=== PATIENT | female | born 1970 | race Two or more races ===

== ENCOUNTER 2016-11-29 21:34 | Emergency (ER) | payer OTHER ==
[~2016-11-29] VITALS: Ht 160 cm; Wt 121.6 kg
[~2016-11-29 21:34] MED LIST: CITA20TA19 PO; OLAN10TA3 PO; OXCA300T4 PO; QUET200T PO; TRAZ-147 PO
[2016-11-29 21:48] VITALS: BP 125/90
[2016-11-29] MEDS ORDERED: IBUPROFEN 400 MG TABLET PO ONE (22:30)
[2016-11-29] MEDS ORDERED: IBUPROFEN 400 MG TABLET ONE (22:45)
== END 2016-11-29 23:02 | disposition home or self-care (01) ==
LOC: ER 21:36
DX: S80.02XA Contusion of left knee, initial encounter (principal); I10 Essential (primary) hypertension; K21.9 Gastro-esophageal reflux disease without esophagitis; F32.9 Major depressive disorder, single episode, unspecified; G89.29 Other chronic pain; M54.9 Dorsalgia, unspecified; I25.2 Old myocardial infarction; F31.9 Bipolar disorder, unspecified; E11.9 Type 2 diabetes mellitus without complications; F19.10 Other psychoactive substance abuse, uncomplicated; F17.200 Nicotine dependence, unspecified, uncomplicated; Z90.710 Acquired absence of both cervix and uterus; Z88.6 Allergy status to analgesic agent; W01.198A Fall on same level from slipping, tripping and stumbling with subsequent striking against other object, initial encounter; Y93.89 Activity, other specified; Y92.89 Other specified places as the place of occurrence of the external cause; Y99.8 Other external cause status
CPT/HCPCS: 73564; 99284; A4606; Z7610

== ENCOUNTER 2016-12-22 13:33 | Emergency (ER) | payer OTHER ==
[~2016-12-22] VITALS: Ht 160 cm; Wt 122.5 kg
--- NOTE | 2016-12-22 13:56 | NUR ---
PT BIB SELF C/O LUMP ON LEFT BREAST X 2 DAYS. PT ALSO COMPLAINS OF PAIN ON LEFT BREAST. PLACED ON MONITOR. VSS.
[2016-12-22] MEDS ORDERED: IBUPROFEN 600 MG TABLET PO ONE (15:52)
[2016-12-22] MEDS ORDERED: ACETAMINOPHEN 650 MG/20.3 ML UDC ONE (15:54)
[2016-12-22] MEDS: IBUPROFEN 600 MG TABLET PO STA (15:59)
[2016-12-22] MEDS: ACETAMINOPHEN 650 MG/20.3 ML UDC PO STA (15:59)
[2016-12-22] MEDS ORDERED: HYDROCODONE/APAP 5/325MG 1 EACH TABLET PO ONE (16:00)
--- NOTE | 2016-12-22 16:52 | NUR ---
CALLED DENAE TO READ US BREAST
--- NOTE | 2016-12-22 17:29 | NUR ---
ATTEMPTED TO CALL PATIENT, TO PROVIDE ACI, NO ANSWER, MESSAGE LEFT
--- NOTE | 2016-12-22 17:29 | NUR ---
Patient eloped from facility. ER MD notified.
[2016-12-22] MEDS: CEPHALEXIN MONOHYDRATE 500 MG CAPSULE PO STA (17:45)
--- NOTE | 2016-12-22 17:45 | NUR ---
PT ELOPED PRIOR TO MEDICATION ADMINISTRATION
[2016-12-22 18:08] VITALS: BP 122/80
== END 2016-12-22 18:09 | disposition left against medical advice (07) ==
LOC: ER 13:36
DX: N64.4 Mastodynia (principal); E11.9 Type 2 diabetes mellitus without complications; I10 Essential (primary) hypertension; K21.9 Gastro-esophageal reflux disease without esophagitis; Z88.5 Allergy status to narcotic agent; Z88.6 Allergy status to analgesic agent; F17.210 Nicotine dependence, cigarettes, uncomplicated
CPT/HCPCS: 76642; 99284; A4606; Z7610

== ENCOUNTER 2017-01-09 14:54 | Emergency (ER) | payer OTHER ==
[~2017-01-09] VITALS: Ht 160 cm; Wt 99.8 kg
[2017-01-09 15:00] VITALS: BP 127/71
== END 2017-01-09 15:22 | disposition home or self-care (01) ==
LOC: ER 14:57
DX: B35.3 Tinea pedis (principal); F32.9 Major depressive disorder, single episode, unspecified; E11.9 Type 2 diabetes mellitus without complications; I25.10 Atherosclerotic heart disease of native coronary artery without angina pectoris; K21.9 Gastro-esophageal reflux disease without esophagitis; I25.2 Old myocardial infarction; F17.200 Nicotine dependence, unspecified, uncomplicated; G89.29 Other chronic pain; M54.9 Dorsalgia, unspecified; I10 Essential (primary) hypertension; Z88.5 Allergy status to narcotic agent; Z88.6 Allergy status to analgesic agent; Z90.710 Acquired absence of both cervix and uterus
CPT/HCPCS: 99283; A4606; Z7610

== ENCOUNTER 2017-04-07 21:24 | Emergency (ER) | payer OTHER ==
[~2017-04-07] VITALS: Ht 160 cm; Wt 125.6 kg
[2017-04-07 21:24] VITALS: BP 127/73
[2017-04-07] MEDS ORDERED: KETOROLAC TROMETHAMINE INJ 60 MG/2 ML VIAL IM ONE (22:00)
[2017-04-07] MEDS ORDERED: HYDROCODONE/APAP 5/325MG 1 EACH TABLET PO ONE (22:00)
[2017-04-07] MEDS ORDERED: HYDROCODONE/APAP 5/325MG 1 EACH TABLET ONE (22:03)
[2017-04-07] MEDS ORDERED: KETOROLAC TROMETHAMINE INJ 30 MG/ML VIAL ONE (22:04)
--- NOTE | 2017-04-07 22:13 | NUR ---
PT REC'D A KNEE IMMOBILIZER AND MEDICATION ORDERED.
== END 2017-04-07 22:24 | disposition home or self-care (01) ==
LOC: ER 21:26
DX: M25.562 Pain in left knee (principal); I10 Essential (primary) hypertension; K21.9 Gastro-esophageal reflux disease without esophagitis; E11.9 Type 2 diabetes mellitus without complications; F17.200 Nicotine dependence, unspecified, uncomplicated; M54.9 Dorsalgia, unspecified; G89.29 Other chronic pain; F31.9 Bipolar disorder, unspecified; M19.90 Unspecified osteoarthritis, unspecified site; I25.2 Old myocardial infarction; I25.10 Atherosclerotic heart disease of native coronary artery without angina pectoris; Z95.0 Presence of cardiac pacemaker; Z88.5 Allergy status to narcotic agent; Z90.710 Acquired absence of both cervix and uterus; Z88.6 Allergy status to analgesic agent
CPT/HCPCS: 29505; 96372; 99283; A4606; J1885; Z7610

== ENCOUNTER 2017-04-10 00:13 | Inpatient (IN) | payer OTHER ==
[~2017-04-10] VITALS: Ht 160 cm; Wt 129.3 kg
--- NOTE | 2017-04-10 02:20 | NUR ---
PT PRESENTED TO THE ER WITH A C/O BLOOD IN HER STOOL. PT IS ALSO C/O ABD PAIN. PT IS ON THE MONITOR AND CONTINUOUS PULSE OX. PT'S IS AT THE BEDSIDE.
[2017-04-10] MEDS ORDERED: IV NS 0.9% 1,000 ML BAG IV ONE (03:00)
[2017-04-10] MEDS ORDERED: PANTOPRAZOLE 80 MG in IV NS 0.9% 500 ML IV ONE (03:00)
[2017-04-10] MEDS ORDERED: PANTOPRAZOLE 80 MG in IV NS 0.9% 100 ML IV ONE (03:00)
[2017-04-10] MEDS ORDERED: PANTOPRAZOLE 40 MG VIAL ONE (03:02)
[2017-04-10] MEDS ORDERED: IV SET PRIMARY 1 EA INFUS.SET MC ONE (03:03)
[2017-04-10] MEDS ORDERED: IV NS 0.9% 1,000 ML ONE ×2 (03:03→05:41)
[2017-04-10] MEDS ORDERED: IV NS 0.9% 100 ML IV ONE (03:03)
[2017-04-10] MEDS ORDERED: IV SET PRIMARY PUMP SET 1 EA INFUS.SET MC ONE ×2 (03:03→05:41)
[2017-04-10] MEDS ORDERED: IV NS 0.9% 500 ML IV ONE (03:03)
[2017-04-10 03:11] LABS: BASOPHILS % (AUTO) 0.3 % (0.0-2.0); EOSINOPHILS # (AUTO) 0.3 /CMM (0.0-0.7); EOSINOPHILS % (AUTO) 2.8 % (0.0-6.0); HEMATOCRIT 39 % (33-45); HEMOGLOBIN 13.2 g/dL (11.5-14.8); LYMPHOCYTES # (AUTO) 2.7 /CMM (0.8-4.8); LYMPHOCYTES % (AUTO) 29.1 % (20.0-44.0); MEAN CORPUSCULAR HEMOGLOBIN 29 PG (26.0-33.0); MEAN CORPUSCULAR HGB CONC 34 g/dl (31.0-36.0); MEAN CORPUSCULAR VOLUME 86 fL (82-100); MONOCYTES # (AUTO) 0.5 /CMM (0.1-1.30); MONOCYTES % (AUTO) 5.1 % (2.0-12.0); NEUTROPHILS # (AUTO) 5.9 /CMM (1.8-8.9); NEUTROPHILS % (AUTO) 62.7 % (43.0-81.0); PLATELET COUNT (AUTO) 294 /CMM (150-450); RDW COEFFICIENT OF VARIATION 15.1 (11.5-15.0); RED BLOOD CELL COUNT(AUTO) 4.51 MIL/uL (4.0-5.2); WHITE BLOOD COUNT (AUTO) 9.4 K/uL (4.3-11.0)
[2017-04-10] MEDS ORDERED: LANS15TA4 PO (03:11)
[2017-04-10] MEDS ORDERED: FURO-145 PO (03:11)
[2017-04-10 03:18] LABS: CALCIUM, SERUM 8.6 mg/dL (8.5-10.1); CARBON DIOXIDE 31 mmol/L (21-32); CHLORIDE 104 mmol/L (98-107); CREATININE 0.7 mg/dL (0.6-1.3); GLUCOSE 134 mg/dL (74-106); POTASSIUM 3.4 mmol/L (3.5-5.1); SODIUM SERUM 140 mmol/L (136-145); UREA NITROGEN, BLOOD 4 mg/dL (7-18)
[2017-04-10 03:25] LABS: TROPONIN I < 0.017 ng/mL (0.00-0.056)
[2017-04-10 03:26] LABS: ALANINE AMINOTRANSFERASE 25 U/L (12-78); ALBUMIN 2.6 g/dL (3.4-5.0); ALKALINE PHOSPHATASE 93 U/L (46-116); ASPARTATE AMINOTRANSFERASE 19 U/L (15-37); BILIRUBIN,TOTAL 0.1 mg/dL (0.2-1.0); LIPASE 66 U/L (73-393); TOTAL PROTEIN, SERUM 6.2 g/dL (6.4-8.2)
[2017-04-10 03:32] LABS: INR 0.92 (0.87-1.13); PROTHROMBIN TIME 9.8 SECS (9.5-12.7)
[2017-04-10] MEDS ORDERED: DOCU-270 PO (03:37)
[2017-04-10] MEDS ORDERED: FERR-58 PO (03:37)
[2017-04-10] MEDS ORDERED: FLUO20CA36 PO (03:37)
[2017-04-10] MEDS ORDERED: OLAN15TA3 PO (03:37)
[2017-04-10] MEDS ORDERED: OXYB10TA PO (03:37)
[2017-04-10] MEDS ORDERED: METF500T4 PO (03:37)
[2017-04-10] MEDS ORDERED: [UNRECOGNIZED DRUG - CODE] EACHEYE (03:37)
[2017-04-10] MEDS ORDERED: ONDANSETRON HCL/PF 4 MG/2 ML VIAL ONE (03:48)
[2017-04-10] MEDS ORDERED: HYDROMORPHONE 1 MG/1 ML DISP.SYRIN ONE (03:48)
--- NOTE | 2017-04-10 03:54 | NUR ---
PT MEDICATED ORDERED
--- NOTE | 2017-04-10 04:21 | NUR ---
ASSIGNED M/S [facility] 322-1
[2017-04-10] MEDS ORDERED: HYDROMORPHONE 1 MG/1 ML DISP.SYRIN IV ONE (05:00)
[2017-04-10] MEDS ORDERED: ONDANSETRON HCL/PF 4 MG/2 ML VIAL IV ONE (05:00)
--- NOTE | 2017-04-10 05:15 | NUR ---
MS/RN NOTES PT ARRIVED TO UNIT FROM ER VIA GURNEY. ON ROOM AIR, A/OX3, BREATHING EVEN AND UNLABORED. DENIES SOB AT THIS TIME. NO S/S OF DISTRESS. IV TO RFA PATENT AND INTACT RUNNING IVF ORDERED. ORIENTED PT TO ROOM AND CALL LIGHT. BED IN LOW/LOCKED POSITION WITH CALL LIGHT IN REACH. SIDE RAILS UPX2. WILL CONTINUE TO MONITOR
[2017-04-10] MEDS ORDERED: IV NS 0.9% 1,000 ML BAG IV PRN (05:30)
[2017-04-10] MEDS ORDERED: ONDANSETRON HCL/PF 4 MG/2 ML VIAL IV PRN (05:30)
[2017-04-10] MEDS ORDERED: ACETAMINOPHEN ES 500 MG TABLET ONE (06:31)
[2017-04-10] MEDS: ACETAMINOPHEN ES 500 MG TABLET PO PRN ×2 (06:43→14:29)
--- NOTE | 2017-04-10 06:54 | NUR ---
MS/RN NOTES PT COMPLAINING OF PAIN 8/10 TO ABDOMEN. SPOKE TO DR. JEWELL AND HE WILL NOT ORDER OPIOIDS FOR HER. ORDERED TYLENOL 1,000MG (2 TABS) PRN Q6H FOR PAIN. ORDERS NOTED AND CARRIED OUT.
--- NOTE | 2017-04-10 07:00 | NUR ---
MS/RN NOTES PT ASLEEP, EASILY AROUSABLE TO NAME. A/OX3. ON ROOM AIR, NO SOB OR DISTRESS NOTED. BREATHING EVEN AND UNLABORED. DENIES PAIN AT THIS TIME. TYLENOL 1,000MG PO ADMINISTERED FOR ABDOMINAL PAIN. IV TO RAC RUNNING IVF ORDERED. BED IN LOW/LOCKED POSITION WITH CALL LIGHT IN REACH. SIDE RAILS UPX2. WILL ENDORSE TO AM SHIFT C[place].
--- NOTE | 2017-04-10 07:21 | NUR ---
ms rn initial notes Received patient in bed, asleep, head of bed elevated, no SOB or distress noted. On room air and tolerated well. IV intact and patent with IVF infusing well. Alert and oriented x 3, verbally responsive and able to make needs known. Kept patient clean and comfortable in bed, call light with in patient reach, will continue to monitor accordingly.
--- NOTE | 2017-04-10 07:30 | NUR ---
MS/RN NOTES BLOOD [id number]. NO INSULIN SLIDING SCALE, PT TAKING METFORMIN AT HOME. ON CLEAR LIQUID DIET.
[2017-04-10] MEDS: BLOOD SUGAR DIAGNOSTIC 1 EACH STRIP IN SCH ×4 (07:40→23:07)
[2017-04-10 07:47] LABS: BASOPHILS % (AUTO) 0.5 % (0.0-2.0); EOSINOPHILS # (AUTO) 0.3 /CMM (0.0-0.7); EOSINOPHILS % (AUTO) 3.3 % (0.0-6.0); HEMATOCRIT 37 % (33-45); HEMOGLOBIN 12.3 g/dL (11.5-14.8); LYMPHOCYTES # (AUTO) 3.2 /CMM (0.8-4.8); LYMPHOCYTES % (AUTO) 33.7 % (20.0-44.0); MEAN CORPUSCULAR HEMOGLOBIN 29 PG (26.0-33.0); MEAN CORPUSCULAR HGB CONC 33 g/dl (31.0-36.0); MEAN CORPUSCULAR VOLUME 87 fL (82-100); MONOCYTES # (AUTO) 0.5 /CMM (0.1-1.30); MONOCYTES % (AUTO) 5.2 % (2.0-12.0); NEUTROPHILS # (AUTO) 5.5 /CMM (1.8-8.9); NEUTROPHILS % (AUTO) 57.3 % (43.0-81.0); PLATELET COUNT (AUTO) 270 /CMM (150-450); RDW COEFFICIENT OF VARIATION 14.8 (11.5-15.0); RED BLOOD CELL COUNT(AUTO) 4.27 MIL/uL (4.0-5.2); WHITE BLOOD COUNT (AUTO) 9.6 K/uL (4.3-11.0)
[2017-04-10 07:54] LABS: CALCIUM, SERUM 8.1 mg/dL (8.5-10.1); CREATININE 0.7 mg/dL (0.6-1.3); POTASSIUM 3.4 mmol/L (3.5-5.1)
[2017-04-10 08:00] VITALS: BP 112/52
[2017-04-10] MEDS: PANTOPRAZOLE 40 MG VIAL IV SCH (09:00)
--- NOTE | 2017-04-10 09:35 | NUR ---
ms rn notes Protonix IV held due to patient is on protonix IV drip still infusing. Will continue to monitor accordingly.
[2017-04-10] MEDS ORDERED: POTASSIUM CHLORIDE 20 MEQ TAB.PRT.SR PO SCH (11:30)
[2017-04-10] MEDS: METFORMIN 500 MG TABLET PO SCH (12:15)
[2017-04-10 16:00] VITALS: BP 118/76
[2017-04-10 16:15] VITALS: BP 115/76
--- NOTE | 2017-04-10 16:21 | NUR ---
ms rn notes Dr. Rutherford came seen and examined the patient and discussed the plan of care and ordered Gabapentin 800 mg TID. All orders carried out and noted. Will continue to monitor accordingly.
[2017-04-10] MEDS: OXYBUTYNIN CHLORIDE 5 MG TABLET PO SCH (16:53)
[2017-04-10] MEDS: GABAPENTIN 400 MG CAPSULE PO SCH (16:53)
[2017-04-10] MEDS ORDERED: OLANZAPINE 5 MG TABLET PO SCH (18:00)
--- NOTE | 2017-04-10 19:17 | NUR ---
ms rn closing notes All needs provided, attended and anticipated. kept patient clean and comfortable in bed, call light with in patient reach, endorsed to next shift RN to continue care.
--- NOTE | 2017-04-10 19:20 | NUR ---
MS/RN NOTES PT RECEIVED ASLEEP IN BED, AROUSABLE TO TACTILE STIMULI. ON ROOM AIR, BREATHING EVEN AND UNLABORED. DENIES SOB OR PAIN AT THIS TIME. PT TO HAVE EGD AND COLONOSCOPY IN AM. CONSENTS SIGNED AND FLAGGED IN THE CHART. TO START GOLYTELY THEN NPO AT MIDNIGHT. PT EDUCATED ABOUT PROCEDURES. VERBALIZES UNDERSTANDING. IV TO RIGHT HAND AND RAC PATENT AND INTACT, RUNNING IVF ORDERED. BED IN LOW/LOCKED POSITION WITH CALL LIGHT IN REACH. SIDE RAILS UPX2. WILL CONTINUE TO MONITOR
[2017-04-10 20:00] VITALS: BP 128/77
[2017-04-10] MEDS ORDERED: TRAZODONE 50 MG TABLET PO SCH (22:00)
[2017-04-10] MEDS ORDERED: PEG 3350/NA SULF,BICARB,CL/KCL 4,000 ML BOTTLE PO ONE (22:00)
[2017-04-10] MEDS ORDERED: ATORVASTATIN 10 MG TABLET PO SCH (22:00)
--- NOTE | 2017-04-11 | NUR ---
MS/RN NOTES PT COMPLETED GOLYTELY, REMINDED PT ABOUT NPO STATUS UNTIL PROCEDURE IN AM. VERBALIZED UNDERSTANDING.
[2017-04-11] MEDS: BLOOD SUGAR DIAGNOSTIC 1 EACH STRIP IN SCH ×2 (06:25→12:15)
--- NOTE | 2017-04-11 06:28 | NUR ---
MS/RN NOTES BLOOD [id number]. PT NPO FOR PROCEDURE THIS AM. WILL MONITOR FOR S/S OF HYPOGLYCEMIA
--- NOTE | 2017-04-11 06:37 | NUR ---
MS/RN NOTES PT ASLEEP, EASILY AROUSABLE TO NAME/TOUCH, HOB ELEVATED. ON ROOM AIR, BREATHING EVEN AND UNLABORED. NO S/S OF DISTRESS. DENIES PAIN AT THIS TIME. PT REMAINS ON NPO STATUS FOR EGD/COLONOSCOPY THIS AM. CONSENTS SIGNED AND FLAGGED IN THE CHART. NO STOOL NOTED POST GOLYTELY ADMINISTRATION, CLEAR/YELLOW OUTPUT. IV TO RAC PATENT AND INTACT, IV TO RIGHT HAND RUNNING IVF ORDERED. ALL NEEDS MET AND ATTENDED. MADE PT COMFORTABLE THROUGHOUT SHIFT. BED REMAINS IN LOW/LOCKED POSITION WITH CALL LIGHT IN REACH. SIDE RAILS UPX2. WILL ENDORSE TO AM SHIFT [place].
--- NOTE | 2017-04-11 07:22 | NUR ---
ms rn Initial notes Received patient in bed, awake, head of bed elevated, no SOB or distress noted. On room air and tolerated well. Alert and oriented x 3, verbally responsive and able to make needs known. IV intact and patent with IVF infusing well. NPO for scheduled procedure today. Kept patient clean and comfortable in bed, call light with in patient reach, will continue to monitor accordingly.
[2017-04-11 07:56] LABS: CALCIUM, SERUM 8.2 mg/dL (8.5-10.1); CREATININE 0.7 mg/dL (0.6-1.3); POTASSIUM 3.9 mmol/L (3.5-5.1)
[2017-04-11 08:00] VITALS: BP 128/61
[2017-04-11] MEDS: OXYBUTYNIN CHLORIDE 5 MG TABLET PO SCH (09:00)
[2017-04-11] MEDS: METFORMIN 500 MG TABLET PO SCH (09:00)
[2017-04-11] MEDS: GABAPENTIN 400 MG CAPSULE PO SCH ×2 (09:00→12:15)
[2017-04-11] MEDS: PANTOPRAZOLE 40 MG VIAL IV SCH (09:00)
[2017-04-11] MEDS ORDERED: ANESTHESIA TRAY IN PYXIS 1 EA TRAY MC ONE (13:37)
--- NOTE | 2017-04-11 14:22 | NUR ---
ms rn disease management notes discharge instructions given to patient and able to understand instructions. Signed discharge paper and belonging list. Patient is alert and oriented x 3, verbally responsive. Spoke to Dr. Rutherford regarding patient and discharge ordered to continue home medication. Skin is intact. Patient refused pneumonia vaccine due to age and flu is out of season. IV discontinued and pressured applied to prevent bleeding. Patient left via ambulatory accompanied by maritza bowers with no signs and symptoms of pain or discomfort, nor chest pain. Left in stable condition. Vital signs checked and recorded. MD and charge nurse aware.
[2017-04-12] MEDS ORDERED: PANTOPRAZOLE 40 MG TABLET.DR PO SCH (07:30)
== END 2017-04-11 14:30 | disposition home or self-care (01) | DRG 253 ==
LOC: ER 00:13 → MED 04:43
PROVIDERS: ADMIT Internal Medicine; ATTEND Internal Medicine
PROC: 0DJ08ZZ Inspection of Upper Intestinal Tract, Via Natural or Artificial Opening Endoscopic (ICD-10-PCS; principal; 2017-04-11 09:36)
PROC: 0DJD8ZZ Inspection of Lower Intestinal Tract, Via Natural or Artificial Opening Endoscopic (ICD-10-PCS; 2017-04-11 09:36)
DX: K92.2 Gastrointestinal hemorrhage, unspecified (principal); Z68.43 Body mass index [BMI] 50.0-59.9, adult; I10 Essential (primary) hypertension; E66.01 Morbid (severe) obesity due to excess calories; E11.9 Type 2 diabetes mellitus without complications; F31.9 Bipolar disorder, unspecified; I25.10 Atherosclerotic heart disease of native coronary artery without angina pectoris; K21.9 Gastro-esophageal reflux disease without esophagitis; I25.2 Old myocardial infarction; Z90.49 Acquired absence of other specified parts of digestive tract; K64.8 Other hemorrhoids; K57.90 Diverticulosis of intestine, part unspecified, without perforation or abscess without bleeding
CPT/HCPCS: 36415; 72128-TC; 80048-TC; 80076-TC; 82962-TC; 83690-TC; 84484-TC; 84703-TC; 85025-TC; 85730-TC; 86850-TC; 87081-TC; A4606; C9113; J1170; J2001; J2405; J2704; J7030; J7040; Z7610

== ENCOUNTER 2017-05-22 12:35 | Emergency (ER) | payer OTHER ==
[~2017-05-22] VITALS: Ht 160 cm; Wt 122.5 kg
[2017-05-22 12:35] VITALS: BP 128/84
[~2017-05-22 12:35] MED LIST changes: -CITA20TA19 PO; +METF500T4 PO; -OLAN10TA3 PO; +OLAN15TA3 PO; -OXCA300T4 PO; +OXYB10TA PO; -QUET200T PO
--- NOTE | 2017-05-22 12:35 | NUR ---
C/O RIGHT CALF PAIN X 3 DAYS, DENIES ANY RECENT FALL OR INJURY
[2017-05-22 13:18] LABS: BASOPHILS # (AUTO) 0.2 /CMM (0.0-0.2); BASOPHILS % (AUTO) 2.2 % (0.0-2.0); EOSINOPHILS # (AUTO) 0.3 /CMM (0.0-0.7); EOSINOPHILS % (AUTO) 2.8 % (0.0-6.0); HEMATOCRIT 44 % (33-45); HEMOGLOBIN 14.2 g/dL (11.5-14.8); LYMPHOCYTES % (AUTO) 20.8 % (20.0-44.0); MEAN CORPUSCULAR HEMOGLOBIN 28 PG (26.0-33.0); MEAN CORPUSCULAR HGB CONC 33 g/dl (31.0-36.0); MEAN CORPUSCULAR VOLUME 87 fL (82-100); MONOCYTES # (AUTO) 0.4 /CMM (0.1-1.30); MONOCYTES % (AUTO) 3.8 % (2.0-12.0); NEUTROPHILS # (AUTO) 6.7 /CMM (1.8-8.9); NEUTROPHILS % (AUTO) 70.4 % (43.0-81.0); PLATELET COUNT (AUTO) 299 /CMM (150-450); RDW COEFFICIENT OF VARIATION 14.1 (11.5-15.0); RED BLOOD CELL COUNT(AUTO) 4.98 MIL/uL (4.0-5.2); WHITE BLOOD COUNT (AUTO) 9.6 K/uL (4.3-11.0)
[2017-05-22 13:32] LABS: INR 0.94 (0.87-1.13); PROTHROMBIN TIME 9.8 SECS (9.5-12.7)
[2017-05-22 13:34] LABS: ALANINE AMINOTRANSFERASE 32 U/L (12-78); ALBUMIN 3.4 g/dL (3.4-5.0); ALCOHOL, BLOOD < 3 mg/dL (0-0); ALKALINE PHOSPHATASE 105 U/L (46-116); ASPARTATE AMINOTRANSFERASE 26 U/L (15-37); BILIRUBIN,DIRECT 0.1 mg/dL (0.0-0.2); BILIRUBIN,TOTAL 0.2 mg/dL (0.2-1.0); CALCIUM, SERUM 8.7 mg/dL (8.5-10.1); CARBON DIOXIDE 26 mmol/L (21-32); CHLORIDE 104 mmol/L (98-107); CREATININE 0.8 mg/dL (0.6-1.3); GLUCOSE 128 mg/dL (74-106); POTASSIUM 3.8 mmol/L (3.5-5.1); SALICYLATE 4.9 mg/dL (2.8-20.0); SODIUM SERUM 138 mmol/L (136-145); TOTAL PROTEIN, SERUM 7.5 g/dL (6.4-8.2); UREA NITROGEN, BLOOD 10 mg/dL (7-18)
[2017-05-22 13:35] LABS: ACETAMINOPHEN < 10 ug/ml (10-30)
--- NOTE | 2017-05-22 13:42 | NUR ---
URINE SAMPLE COLLECTED SENT TO LAB
[2017-05-22] MEDS ORDERED: ACETAMINOPHEN ES 500 MG TABLET ONE (13:44)
[2017-05-22] MEDS: ACETAMINOPHEN ES 500 MG TABLET PO ONE (13:45)
[2017-05-22 13:51] LABS: APPEARANCE,URINE Cloudy (CLEAR); BILIRUBIN,URINE SMALL (NEGATIVE); BLOOD, URINE Negative Ery/uL (NEGATIVE); COLOR,URINE Yellow (YELLOW); KETONES,URINE Negative (NEGATIVE); LEUKOCYTE ESTERASE ,URINE Negative (NEGATIVE); NITRITE, URINE Negative (NEGATIVE); PROTEIN,URINE 30 mg/dl (NEGATIVE); UGLUCOSE Negative (NEGATIVE); UROBILINOGEN,URINE 0.2 EU/dL (0.2)
[2017-05-22 13:54] LABS: BACTERIA,URINE Rare /HPF (None Seen); RBC,URINE 0-2 /HPF (0-2); SQUAMOUS EPITHELIAL CELL,UR Many /HPF (None Seen); WBC,URINE 0-2 /HPF (0-3)
--- NOTE | 2017-05-22 14:12 | NUR ---
DIE TECHNICIAN AT BEDSIDE
== END 2017-05-22 14:26 | disposition home or self-care (01) ==
LOC: ER 12:38
DX: M79.604 Pain in right leg (principal); F31.9 Bipolar disorder, unspecified; E11.9 Type 2 diabetes mellitus without complications; F17.210 Nicotine dependence, cigarettes, uncomplicated; I10 Essential (primary) hypertension; I25.10 Atherosclerotic heart disease of native coronary artery without angina pectoris; I25.2 Old myocardial infarction; G89.29 Other chronic pain; K21.9 Gastro-esophageal reflux disease without esophagitis; R06.02 Shortness of breath; Z88.5 Allergy status to narcotic agent; Z88.6 Allergy status to analgesic agent
CPT/HCPCS: 36415; 80048-TC; 80076-TC; 80305; 81000-TC; 85025-TC; 85730-TC; 93971-TC; A4606; G0480; Z7610

== ENCOUNTER 2017-06-04 16:02 | Emergency (ER) | payer OTHER ==
[~2017-06-04] VITALS: Ht 157.5 cm; Wt 124.7 kg
[2017-06-04 16:02] VITALS: BP 114/62
[2017-06-04] MEDS ORDERED: HYDROCODONE/APAP 5/325MG 1 EACH TABLET ONE (16:55)
[2017-06-04] MEDS ORDERED: HYDROCODONE/APAP 5/325MG 1 EACH TABLET PO ONE (17:00)
== END 2017-06-04 17:47 | disposition home or self-care (01) ==
LOC: ER 16:05
DX: B35.3 Tinea pedis (principal); M79.672 Pain in left foot; G89.29 Other chronic pain; E11.9 Type 2 diabetes mellitus without complications; F32.9 Major depressive disorder, single episode, unspecified; I10 Essential (primary) hypertension; I25.10 Atherosclerotic heart disease of native coronary artery without angina pectoris; I25.2 Old myocardial infarction; K21.9 Gastro-esophageal reflux disease without esophagitis; Z88.5 Allergy status to narcotic agent; Z88.6 Allergy status to analgesic agent; F17.200 Nicotine dependence, unspecified, uncomplicated
CPT/HCPCS: 99283; A4606; Z7610

== ENCOUNTER 2017-06-23 17:41 | Inpatient (IN) | payer OTHER ==
[~2017-06-23] VITALS: Ht 160 cm; Wt 127.0 kg
--- NOTE | 2017-06-23 17:41 | NUR ---
BIB RA, C/O SHORTNESS OF BREATH, HEART RATE 130/MIN PER EMS. PLACED ON MONITOR. AWAITING MD ORDER
--- NOTE | 2017-06-23 18:22 | NUR ---
URINE COLLECTED SENT TO LAB
--- NOTE | 2017-06-23 18:30 | NUR ---
CLOTH WASHER BACK TENDER AT BEDSIDE
[2017-06-23 18:41] LABS: CALCIUM, SERUM 8.5 mg/dL (8.5-10.1); CARBON DIOXIDE 24 mmol/L (21-32); CHLORIDE 104 mmol/L (98-107); CREATININE 0.8 mg/dL (0.6-1.3); GLUCOSE 137 mg/dL (74-106); POTASSIUM 3.1 mmol/L (3.5-5.1); SODIUM SERUM 139 mmol/L (136-145); UREA NITROGEN, BLOOD 10 mg/dL (7-18)
[2017-06-23 18:43] LABS: BASOPHILS # (AUTO) 0.2 /CMM (0.0-0.2); BASOPHILS % (AUTO) 1.2 % (0.0-2.0); EOSINOPHILS # (AUTO) 0.2 /CMM (0.0-0.7); EOSINOPHILS % (AUTO) 1.5 % (0.0-6.0); HEMATOCRIT 46 % (33-45); HEMOGLOBIN 15.2 g/dL (11.5-14.8); LYMPHOCYTES # (AUTO) 2.9 /CMM (0.8-4.8); LYMPHOCYTES % (AUTO) 18.9 % (20.0-44.0); MEAN CORPUSCULAR HEMOGLOBIN 28 PG (26.0-33.0); MEAN CORPUSCULAR HGB CONC 33 g/dl (31.0-36.0); MEAN CORPUSCULAR VOLUME 87 fL (82-100); MONOCYTES # (AUTO) 0.5 /CMM (0.1-1.30); MONOCYTES % (AUTO) 3.4 % (2.0-12.0); NEUTROPHILS # (AUTO) 11.4 /CMM (1.8-8.9); PLATELET COUNT (AUTO) 306 /CMM (150-450); RDW COEFFICIENT OF VARIATION 14.5 (11.5-15.0); RED BLOOD CELL COUNT(AUTO) 5.34 MIL/uL (4.0-5.2); WHITE BLOOD COUNT (AUTO) 15.2 K/uL (4.3-11.0)
[2017-06-23 18:49] LABS: TROPONIN I < 0.017 ng/mL (0.00-0.056)
[2017-06-23 18:54] LABS: APPEARANCE,URINE Clear (CLEAR); BILIRUBIN,URINE SMALL (NEGATIVE); BLOOD, URINE Negative Ery/uL (NEGATIVE); COLOR,URINE Dark (YELLOW); KETONES,URINE Trace (NEGATIVE); LEUKOCYTE ESTERASE ,URINE Negative (NEGATIVE); NITRITE, URINE Negative (NEGATIVE); PH,URINE 5.5 (5.0-8.0); PROTEIN,URINE 30 mg/dl (NEGATIVE); UGLUCOSE Negative (NEGATIVE); UROBILINOGEN,URINE 0.2 EU/dL (0.2)
--- NOTE | 2017-06-23 18:58 | NUR ---
CALLED NURSING COUNTER ROLLER FOR TELE BED
[2017-06-23] MEDS ORDERED: POTASSIUM CHLORIDE 20 MEQ TAB.PRT.SR PO ONE ×2 (19:00→19:03)
[2017-06-23 19:08] LABS: BACTERIA,URINE Moderate /HPF (None Seen); MUCUS,URINE Many /LPF (None Seen); RBC,URINE 0-2 /HPF (0-2); SQUAMOUS EPITHELIAL CELL,UR Moderate /HPF (None Seen)
--- NOTE | 2017-06-23 19:08 | NUR ---
DR THOMAS PAGETripp
[2017-06-23] MEDS ORDERED: CLON0.5T PO (19:10)
[2017-06-23] MEDS ORDERED: FLUO10CA26 PO (19:10)
[2017-06-23] MEDS ORDERED: LANS30CA10 PO (19:10)
[2017-06-23] MEDS ORDERED: IV NS 0.9% 250 ML IV ONE (19:52)
[2017-06-23] MEDS ORDERED: IOHEXOL-350 100 ML VIAL IV ONE (19:52)
--- NOTE | 2017-06-23 20:04 | NUR ---
WAITING FOR GOOD AC IV LINE FOR PT BEFORE CTA PULMONARY. DR. FLORENTINO & RN CAITY ARE AWARE. ER WILL CALL WHEN READY.
--- NOTE | 2017-06-23 21:30 | NUR ---
TELE/RN NOTES NEW ADMITTED PATIENT IS 47 YO OBESE FEMALE WHO REPORTED TO HAVE SOB AND CHEST PAIN, ALERT, ORIENTED X3, ABLE TO VERBALIZE NEEDS, CAN AMBULATE W/ SUPERVISION, SKIN INTACT AND WARM TO TOUCH, RESPIRATIONS EVEN AND UNLABORED, COMPLAINED OF PAIN INITIAL BUT STATED TOLERABLE AND WAS HUNGRY. ATTENDED TO NEEDS. BELONGINGS CHECK/RECONCILED. MEDICATION RECONCILED AND RECEIVED ORDER FROM ON RIGHT AC. HX OFT HTN, CAD, DM, DEPPRESSION, SLEEP APNEA, INSOMNIA, SMOKER I PACK A DAY AND VERBALIZED SMOKING CESSATION. POTASSIUM REPLACED PER ER.TELE READING SR 70'SLAST BM TODAY., CALL LIGHTS WITHIN REACH. CONTINUE MONITORING. BED IN LOCK POSITION.
--- NOTE | 2017-06-23 21:50 | NUR ---
TRANSPORTED PT TO TELE BED WITH EMT WITHOUT INCIDENT
[2017-06-23 22:22] VITALS: BP 103/68
[2017-06-23] MEDS ORDERED: ACETAMINOPHEN 325 MG TABLET PO PRN (23:30)
[2017-06-24] VITALS: BP_SYST 96; BP_DIAS 83; BP_DIAS 85
[2017-06-24] MEDS ORDERED: NAPHAZOLINE HCL/PHENIR MAL 15 ML BOTTLE EACHEYE PRN
[2017-06-24] MEDS ORDERED: clonazePAM 0.5 MG TABLET PO PRN
[2017-06-24 04:00] VITALS: BP 110/51
[2017-06-24 04:37] VITALS: BP 110/91
[2017-06-24] MEDS ORDERED: GABAPENTIN 400 MG CAPSULE ONE (04:57)
[2017-06-24] MEDS ORDERED: GABAPENTIN 300 MG CAPSULE PO SCH (05:00)
[2017-06-24] MEDS ORDERED: LANS30CA56 PO (05:11)
--- NOTE | 2017-06-24 06:26 | NUR ---
322-1 TELE/RN CLOSING NOTES PATIENT ABLE TO SLEEP DURING THE NIGHTS, VERBALIZE NO PAIN, SKIN WARM TO TOUCH, CALL LIGHTS WITHIN REACH, WILL ENDOSE TO AM RN REGARDING CARRINGTON.
[2017-06-24 06:57] LABS: BASOPHILS # (AUTO) 0.1 /CMM (0.0-0.2); BASOPHILS % (AUTO) 0.5 % (0.0-2.0); EOSINOPHILS # (AUTO) 0.3 /CMM (0.0-0.7); EOSINOPHILS % (AUTO) 2.7 % (0.0-6.0); HEMATOCRIT 39 % (33-45); LYMPHOCYTES # (AUTO) 2.9 /CMM (0.8-4.8); LYMPHOCYTES % (AUTO) 25.1 % (20.0-44.0); MEAN CORPUSCULAR HEMOGLOBIN 29 PG (26.0-33.0); MEAN CORPUSCULAR HGB CONC 33 g/dl (31.0-36.0); MEAN CORPUSCULAR VOLUME 88 fL (82-100); MONOCYTES # (AUTO) 0.7 /CMM (0.1-1.30); MONOCYTES % (AUTO) 6.2 % (2.0-12.0); NEUTROPHILS # (AUTO) 7.4 /CMM (1.8-8.9); NEUTROPHILS % (AUTO) 65.5 % (43.0-81.0); PLATELET COUNT (AUTO) 265 /CMM (150-450); RDW COEFFICIENT OF VARIATION 15.4 (11.5-15.0); RED BLOOD CELL COUNT(AUTO) 4.47 MIL/uL (4.0-5.2); WHITE BLOOD COUNT (AUTO) 11.4 K/uL (4.3-11.0)
[2017-06-24 07:09] LABS: ALBUMIN 2.5 g/dL (3.4-5.0); BILIRUBIN,TOTAL 0.2 mg/dL (0.2-1.0); CALCIUM, SERUM 8.1 mg/dL (8.5-10.1); CREATININE 0.5 mg/dL (0.6-1.3); TOTAL PROTEIN, SERUM 5.9 g/dL (6.4-8.2)
--- NOTE | 2017-06-24 07:42 | NUR ---
TELE/RN NOTES RECEIVED PATIENT RESTING IN BED AWAKE AND ORIENTED X4. NO FORM OF DISTRESS/DISCOMFORT NOTED. DENIES ANY PAIN AT THIS TIME. BREATHING EVEN AND UNLABORED. PT INDEPENDENT WITH ADLS AMBULATORY WITH SUPERVISION. IV TO RIGHT AC INTACT AND PATENT H/L. SAFETY MEASURES RENDERED CALL LIGHT PLACED WITHIN EASY REACH. WILL CONTINUE TO MONITOR.
[2017-06-24 08:00] VITALS: BP 130/73
[2017-06-24 08:46] LABS: THYROID STIMULATING HORMONE 2.783 uIU/mL (0.358-3.74)
[2017-06-24] MEDS ORDERED: FUROSEMIDE 20 MG TABLET PO SCH (09:00)
[2017-06-24] MEDS ORDERED: NICOTINE PATCH (7MG) 7 MG PATCH.TD24 TD SCH (09:00)
[2017-06-24] MEDS ORDERED: HOME MED MISCELLANEOUS SL SCH (09:00)
[2017-06-24] MEDS ORDERED: DULOXETINE HCL 30 MG CAPSULE.DR PO SCH (09:00)
[2017-06-24] MEDS ORDERED: Fluoxetine 10 mg capsule PO SCH (09:00)
[2017-06-24] MEDS ORDERED: FERROUS SULFATE (325 MG) 325 MG/TAB TABLET PO SCH (09:00)
[2017-06-24] MEDS ORDERED: DOCUSATE SODIUM 100 MG CAPSULE PO SCH (09:00)
[2017-06-24] MEDS ORDERED: OXYBUTYNIN CHLORIDE ER 5 MG TAB PO SCH (09:00)
--- NOTE | 2017-06-24 09:45 | NUR ---
MS/RN NOTES ECHOCARDIOGRAM WITH DOPPLER AT BEDSIDE.
--- NOTE | 2017-06-24 10:30 | NUR ---
MS/RN NOTES PATIENT REQUESTING TO GO DOWN FOR SMOKE BREAK. SMOKING CONSENT SIGNED AND WILL BE TAKEN DOWN BY FLORIST HELPER
[2017-06-24] MEDS ORDERED: ALBU18HF2 IH (10:35)
[2017-06-24] MEDS ORDERED: TIOT18CA3 IH (10:35)
[2017-06-24] MEDS ORDERED: OXYB10TA PO (11:00)
[2017-06-24] MEDS ORDERED: FURO-145 PO (11:00)
[2017-06-24] MEDS ORDERED: ATOR10TA PO (11:00)
[2017-06-24] MEDS ORDERED: GABAPENTIN 400 MG CAPSULE PO SCH (13:00)
--- NOTE | 2017-06-24 15:22 | NUR ---
MS/RN D/C NOTES ORDER RECEIVED FOR D/C. ALL FORMS COMPLETED, SIGNED AND COPIED. INSTRUCTED PATIENT ON DISCHARGE INSTRUCTIONS. PATIENT INFORMED TO FOLLOW UP WITH PRIMARY CARE PHYSICIAN FOR BIOPSY AND MAMMOGRAM. MED RECON DONE, REVIEWED MEDS WITH PATIENT AND FAMILY. IV REMOVED AND COVERED. PATIENT LEFT WITH VIA PRIVATE CAR.
[2017-06-24] MEDS ORDERED: OLANZAPINE 10 MG TABLET PO SCH (22:00)
[2017-06-24] MEDS ORDERED: TRAZODONE 50 MG TABLET PO SCH (22:00)
[2017-06-25] MEDS ORDERED: METFORMIN 500 MG TABLET PO SCH (09:00)
== END 2017-06-24 14:22 | disposition home or self-care (01) | DRG 425 ==
LOC: ER 17:42 → TELE 20:56 → MED 06-24 08:55
PROVIDERS: ADMIT Internal Medicine Hematology & Oncology; ATTEND Internal Medicine Hematology & Oncology
DX: E87.6 Hypokalemia (principal); E66.01 Morbid (severe) obesity due to excess calories; I10 Essential (primary) hypertension; R00.0 Tachycardia, unspecified; R06.02 Shortness of breath; F32.9 Major depressive disorder, single episode, unspecified; E11.9 Type 2 diabetes mellitus without complications; Z88.5 Allergy status to narcotic agent; Z88.8 Allergy status to other drugs, medicaments and biological substances; G47.00 Insomnia, unspecified; I25.10 Atherosclerotic heart disease of native coronary artery without angina pectoris; G47.33 Obstructive sleep apnea (adult) (pediatric); I25.2 Old myocardial infarction; K21.9 Gastro-esophageal reflux disease without esophagitis; Z90.710 Acquired absence of both cervix and uterus; M19.90 Unspecified osteoarthritis, unspecified site; F17.200 Nicotine dependence, unspecified, uncomplicated; F19.10 Other psychoactive substance abuse, uncomplicated; Z79.84 Long term (current) use of oral hypoglycemic drugs; K44.9 Diaphragmatic hernia without obstruction or gangrene; F41.0 Panic disorder [episodic paroxysmal anxiety]; N63 Unspecified lump in breast
CPT/HCPCS: 36415; 71010-TC; 80048-TC; 80053-TC; 80061-TC; 80076-TC; 81000-TC; 82306; 82728-TC; 83540-TC; 84439-TC; 84443-TC; 84484-TC; 85025-TC; 85378-TC; 87040-TC; 87081-TC; 87086-TC; 93307-TC; 93970-TC; J7050; Q9967; Z7610

== ENCOUNTER 2017-06-29 21:57 | Emergency (ER) | payer OTHER ==
[~2017-06-29] VITALS: Ht 165.1 cm; Wt 104.3 kg
[~2017-06-29 21:57] MED LIST changes: +ALBU18HF2 IH; +ATOR10TA PO; +CLON0.5T PO; +FLUO10CA26 PO; +FURO-145 PO; +LANS30CA56 PO; +TIOT18CA3 IH
[2017-06-29 22:07] VITALS: BP 128/80
== END 2017-06-29 22:50 | disposition home or self-care (01) ==
LOC: ER 22:03
DX: M54.5 Low back pain (principal); G89.29 Other chronic pain; E11.9 Type 2 diabetes mellitus without complications; E78.5 Hyperlipidemia, unspecified; F41.0 Panic disorder [episodic paroxysmal anxiety]; I25.10 Atherosclerotic heart disease of native coronary artery without angina pectoris; I10 Essential (primary) hypertension; I25.2 Old myocardial infarction; K21.9 Gastro-esophageal reflux disease without esophagitis
CPT/HCPCS: A4606; Z7610

== ENCOUNTER 2017-09-12 00:35 | Emergency (ER) | payer OTHER ==
[~2017-09-12] VITALS: Ht 160 cm; Wt 124.3 kg
[2017-09-12] MEDS ORDERED: CARISOPRODOL 350 MG TABLET PO ONE (01:30)
[2017-09-12] MEDS ORDERED: HYDROCODONE/APAP 10/325MG 1 EA TABLET PO ONE (01:30)
[2017-09-12] MEDS ORDERED: HYDROCODONE/APAP 10/325MG 1 EA TABLET ONE (01:51)
[2017-09-12] MEDS ORDERED: CARISOPRODOL 350 MG TABLET ONE (01:51)
[2017-09-12 01:55] LABS: APPEARANCE,URINE CLEAR (CLEAR); BILIRUBIN,URINE NEGATIVE (NEGATIVE); BLOOD, URINE TRACE-INTA Ery/uL (NEGATIVE); COLOR,URINE YELLOW (YELLOW); KETONES,URINE NEGATIVE (NEGATIVE); LEUKOCYTE ESTERASE ,URINE 1+ (NEGATIVE); NITRITE, URINE NEGATIVE (NEGATIVE); PROTEIN,URINE NEGATIVE (NEGATIVE); UGLUCOSE NEGATIVE (NEGATIVE); UROBILINOGEN,URINE 0.2 EU/dL (0.2)
[2017-09-12 01:58] LABS: BACTERIA,URINE None seen /HPF (None Seen); SQUAMOUS EPITHELIAL CELL,UR Few /HPF (None Seen)
--- NOTE | 2017-09-12 02:21 | NUR ---
PT PRESENTED TO THE ER WITH A C/O BACK PAIN. PT AMBULATED WITH A SLOW STEADY GAIT TO BED #1.
--- NOTE | 2017-09-12 02:25 | NUR ---
PT WAS PLACED ON 2L O2 VIA NC. PT WAS DESATURATING TO 89%ON RA WHILE SLEEPING. PT STATED THAT SHE HAS SLEEP APNEA AND IS ON A MACHINE AT HOME.
--- NOTE | 2017-09-12 02:43 | NUR ---
Patient discharged to home in stable condition. Written and verbal after care instructions given. Patient verbalizes understanding of instruction AND RX. VSS. PT AMBULATED TO THE BATHROOM WITH A STEADY GAIT. VSS. PT'S IS DRIVING PT HOME. RESP EVEN AND UNLABORED. NO ATAXIA NOTED.
[2017-09-12 02:47] VITALS: BP 112/69
== END 2017-09-12 02:48 | disposition home or self-care (01) ==
LOC: ER 00:37
DX: G89.29 Other chronic pain (principal); M54.5 Low back pain; R30.0 Dysuria; I10 Essential (primary) hypertension; E11.9 Type 2 diabetes mellitus without complications; I25.2 Old myocardial infarction; K21.9 Gastro-esophageal reflux disease without esophagitis; F15.10 Other stimulant abuse, uncomplicated; F17.200 Nicotine dependence, unspecified, uncomplicated; Z90.710 Acquired absence of both cervix and uterus; Z95.0 Presence of cardiac pacemaker; F31.9 Bipolar disorder, unspecified; Z88.5 Allergy status to narcotic agent; Z88.6 Allergy status to analgesic agent; Z79.84 Long term (current) use of oral hypoglycemic drugs
CPT/HCPCS: 81001; 87086; 99284; 99406; A4606; Z7610; 81000-TC

== ENCOUNTER 2017-10-15 20:08 | Emergency (ER) | payer OTHER ==
[~2017-10-15] VITALS: Ht 160 cm; Wt 122.5 kg
[2017-10-15 20:12] VITALS: BP 125/86
[2017-10-15] MEDS ORDERED: HYDROCODONE/APAP 5/325MG 1 EACH TABLET ONE (20:21)
[2017-10-15] MEDS ORDERED: HYDROCODONE/APAP 5/325MG 1 EACH TABLET PO ONE (20:30)
== END 2017-10-15 20:28 | disposition home or self-care (01) ==
LOC: ER 20:09
DX: N64.4 Mastodynia (principal); E11.9 Type 2 diabetes mellitus without complications; I10 Essential (primary) hypertension; I25.10 Atherosclerotic heart disease of native coronary artery without angina pectoris; I25.2 Old myocardial infarction; G89.29 Other chronic pain; F31.9 Bipolar disorder, unspecified; F10.10 Alcohol abuse, uncomplicated; K21.9 Gastro-esophageal reflux disease without esophagitis; F17.200 Nicotine dependence, unspecified, uncomplicated; Z90.710 Acquired absence of both cervix and uterus; Z88.5 Allergy status to narcotic agent; Z88.6 Allergy status to analgesic agent
CPT/HCPCS: 99283; A4606; Z7610

== ENCOUNTER 2017-10-23 19:25 | Inpatient (IN) | payer OTHER ==
[~2017-10-23] VITALS: Ht 160 cm; Wt 117.5 kg
--- NOTE | 2017-10-23 19:45 | NUR ---
47 yo male bb ra from home. patient is a/o x 3, c/o left breast cellulitis. patient states she was seen by an MD, discharged with po antibiotics. patient states her cellulitis has not gotten better. paitient assisted to er bed, skin warm and dry, resp even and unlabored. awaiting orders from provider, will continue to monitor
[2017-10-23] MEDS ORDERED: ONDANSETRON HCL/PF 4 MG/2 ML VIAL ONE (19:48)
[2017-10-23] MEDS ORDERED: VANCOMYCIN 1 GM VIAL ONE (19:48)
[2017-10-23] MEDS ORDERED: PIPERACILLIN /TAZOBACTAM 3.375 G VIAL IV ONE (19:48)
[2017-10-23] MEDS ORDERED: HYDROMORPHONE 1 MG/1 ML DISP.SYRIN ONE (19:49)
[2017-10-23 20:00] VITALS: BP 94/51
[2017-10-23] MEDS ORDERED: VANCOMYCIN 1 GM in IV D5W 250 ML IV ONE (20:00)
[2017-10-23] MEDS ORDERED: HYDROMORPHONE 1 MG/1 ML DISP.SYRIN IV ONE (20:00)
[2017-10-23] MEDS ORDERED: ONDANSETRON HCL/PF 4 MG/2 ML VIAL IVP ONE (20:00)
[2017-10-23] MEDS ORDERED: PIPERACILLIN /TAZOBACTAM 3.375 G in IV D5W 50 ML IV ONE (20:00)
--- NOTE | 2017-10-23 20:00 | NUR ---
22g left hand iv started, blood sample obtained and sent to lab
[2017-10-23 20:01] LABS: BASOPHILS # (AUTO) 0.4 /CMM (0.0-0.2); BASOPHILS % (AUTO) 2.3 % (0.0-2.0); EOSINOPHILS # (AUTO) 0.2 /CMM (0.0-0.7); EOSINOPHILS % (AUTO) 0.9 % (0.0-6.0); HEMATOCRIT 38 % (33-45); LYMPHOCYTES # (AUTO) 2.3 /CMM (0.8-4.8); LYMPHOCYTES % (AUTO) 13.5 % (20.0-44.0); MEAN CORPUSCULAR HEMOGLOBIN 29 PG (26.0-33.0); MEAN CORPUSCULAR HGB CONC 34 g/dl (31.0-36.0); MEAN CORPUSCULAR VOLUME 84 fL (82-100); MONOCYTES # (AUTO) 0.7 /CMM (0.1-1.30); NEUTROPHILS # (AUTO) 13.4 /CMM (1.8-8.9); NEUTROPHILS % (AUTO) 79.3 % (43.0-81.0); PLATELET COUNT (AUTO) 334 /CMM (150-450); RDW COEFFICIENT OF VARIATION 14.2 (11.5-15.0); RED BLOOD CELL COUNT(AUTO) 4.53 MIL/uL (4.0-5.2)
--- NOTE | 2017-10-23 20:01 | NUR ---
emt at bed side for EKG
[2017-10-23 20:22] LABS: INR 0.96 (0.87-1.13)
[2017-10-23 20:37] LABS: CALCIUM, SERUM 9.4 mg/dL (8.5-10.1); CREATININE 0.7 mg/dL (0.6-1.3); POTASSIUM 3.4 mmol/L (3.5-5.1)
[2017-10-23 20:43] LABS: BILIRUBIN,TOTAL 0.2 mg/dL (0.2-1.0)
--- NOTE | 2017-10-23 21:00 | NUR ---
PER MD LUCAS PATIENT DOES NOT NEED 32ML/ KG IV FLUID
--- NOTE | 2017-10-23 21:19 | NUR ---
report given to juju HAWLEY for CARRINGTON
--- NOTE | 2017-10-23 21:57 | NUR ---
PATIENT TRANSPORTED TO MS BED VIA WHEELCHAIR BY EMT
--- NOTE | 2017-10-23 22:00 | NUR ---
RN ADMITTING NOTES RECEIVED REPORT FROM FURNACE MECHANIC HELPER CAITY. Pt ARRIVED TO THE FLOOR VIA WHEELCHAIR. Pt IS A/OX4, VERBAL, ABLE TO MAKE NEEDS KNOWN. NO S/S OF ACUTE DISTRESS OR SOB NOTED. Pt IS AMB WITH STEADY GAIT. IV ACCESS ON L HAND #22G, SL. AT BEDSIDE. SAFETY MEASURES IN PLACE. BED LOW, LOCKED, HOB ELEVATED, SIDE RAILS UP, CALL LIGHT AND BEDSIDE TABLE WITHIN REACH. WILL CONTINUE TO MONITOR Pt THROUGHOUT THE NIGHT FOR SAFETY.
--- NOTE | 2017-10-23 22:45 | NUR ---
RN NOTES SPOKE WITH READY TO WEAR DEPARTMENT MANAGER DENISE BUENO ON THE PHONE. RECEIVED TELEPHONE ORDERS. WILL INPUT THE ORDERS AND CARRY THEM OUT ACCORDINGLY.
[2017-10-23] MEDS ORDERED: OLANZAPINE 10 MG TABLET PO SCH (23:30)
[2017-10-23] MEDS ORDERED: ATORVASTATIN 40 MG TABLET PO SCH (23:30)
[2017-10-23] MEDS ORDERED: TRAZODONE 50 MG TABLET PO PRN (23:30)
[2017-10-23] MEDS ORDERED: OLANZAPINE 5 MG TABLET PO SCH (23:45)
[2017-10-23] MEDS ORDERED: ATORVASTATIN 40 MG TABLET ONE (23:45)
[2017-10-23] MEDS ORDERED: OLANZAPINE 5 MG TABLET ONE (23:46)
[2017-10-23] MEDS ORDERED: TRAZODONE 50 MG TABLET ONE (23:47)
[2017-10-24] MEDS ORDERED: TEMAZEPAM 15 MG CAPSULE PO PRN (02:00)
--- NOTE | 2017-10-24 06:35 | NUR ---
RN CLOSING NOTES NO SIGNIFICANT CHANGES IN Pt's CONDITION. NO S/S OF ACUTE DISTRESS OR SOB NOTED DURING THE NIGHT. RESPIRATIONS EVEN AND UNLABORED. ALL NEEDS MET AND ATTENDED TO. SAFETY MEASURES IN PLACE. WILL ENDORSE TO DAYSHIFT RN FOR Pt's C[place].
[2017-10-24 08:00] VITALS: BP 127/99
[2017-10-24] MEDS: MORPHINE SULFATE INJ 4 MG/ML DISP.SYRIN IV PRN ×4 (08:07→20:39)
--- NOTE | 2017-10-24 08:07 | NUR ---
m/s nailer machine: notes c/o 07/11 left breast pain, medicated with morphine 2mg ivp by rn. instructed to call for assistance. will monitor.
[2017-10-24] MEDS ORDERED: ALBUTEROL SULFATE 8 GM HFA.AER.AD IH PRN (08:30)
[2017-10-24] MEDS ORDERED: clonazePAM 0.5 MG TABLET PO PRN (08:30)
[2017-10-24] MEDS ORDERED: TRAZODONE HCL 350 MG PO PRN (08:30)
[2017-10-24] MEDS ORDERED: ALBUTEROL FS 2.5 MG/0.5 ML VIAL.NEB NEB PRN (08:30)
--- NOTE | 2017-10-24 08:37 | NUR ---
m/s band sawmill operator: notes pt verbalized relief of pain, stated, "it's an 8 now." instructed to call for assistance. will continue to monitor.
[2017-10-24] MEDS: METFORMIN 500 MG TABLET PO SCH (08:49)
[2017-10-24] MEDS: OXYBUTYNIN CHLORIDE 5 MG TABLET PO SCH ×2 (08:49→16:54)
[2017-10-24] MEDS: PANTOPRAZOLE 40 MG TABLET.DR PO SCH ×2 (08:49→22:11)
[2017-10-24] MEDS: FUROSEMIDE 20 MG TABLET PO SCH (08:49)
[2017-10-24] MEDS: Fluoxetine 10 mg capsule PO SCH (08:49)
[2017-10-24] MEDS ORDERED: TIOTROPIUM BROMIDE 6 CAP/BOX CAP.W.DEV IH SCH (09:00)
--- NOTE | 2017-10-24 10:00 | NUR ---
m/s glassblower: notes visiting at this time and informed me that pt is taking chantix 1mg po bid. dr. mauricio notified, left message re: med home. pt made aware. instructed to call for assistance. will monitor.
[2017-10-24] MEDS ORDERED: VARE1TAB PO (10:21)
[2017-10-24] MEDS ORDERED: FEE PK DOSING 1 MIN EA MC ONE (10:25)
[2017-10-24] MEDS ORDERED: TRAZODONE 50 MG TABLET PO PRN (10:30)
[2017-10-24 10:38] LABS: BASOPHILS % (AUTO) 0.2 % (0.0-2.0); EOSINOPHILS # (AUTO) 0.2 /CMM (0.0-0.7); EOSINOPHILS % (AUTO) 1.6 % (0.0-6.0); HEMATOCRIT 35 % (33-45); HEMOGLOBIN 11.9 g/dL (11.5-14.8); LYMPHOCYTES # (AUTO) 2.3 /CMM (0.8-4.8); LYMPHOCYTES % (AUTO) 17.4 % (20.0-44.0); MEAN CORPUSCULAR HEMOGLOBIN 29 PG (26.0-33.0); MEAN CORPUSCULAR HGB CONC 34 g/dl (31.0-36.0); MEAN CORPUSCULAR VOLUME 86 fL (82-100); MONOCYTES # (AUTO) 0.6 /CMM (0.1-1.30); MONOCYTES % (AUTO) 4.1 % (2.0-12.0); NEUTROPHILS # (AUTO) 10.3 /CMM (1.8-8.9); NEUTROPHILS % (AUTO) 76.7 % (43.0-81.0); PLATELET COUNT (AUTO) 340 /CMM (150-450); RDW COEFFICIENT OF VARIATION 15.1 (11.5-15.0); RED BLOOD CELL COUNT(AUTO) 4.14 MIL/uL (4.0-5.2); WHITE BLOOD COUNT (AUTO) 13.5 K/uL (4.3-11.0)
--- NOTE | 2017-10-24 10:40 | NUR ---
m/s open hearth helper: notes pt called and ask for another pain medication. informed and educated pt re: morphine order and frequency. informed pt that i will f/u with dr. mauricio; made aware already on chantix, but hasn't called me back yet. will continue to monitor.
[2017-10-24 10:58] LABS: ALBUMIN 2.6 g/dL (3.4-5.0); BILIRUBIN,TOTAL 0.2 mg/dL (0.2-1.0); CREATININE 0.7 mg/dL (0.6-1.3); POTASSIUM 3.5 mmol/L (3.5-5.1); TOTAL PROTEIN, SERUM 7.3 g/dL (6.4-8.2)
[2017-10-24] MEDS: VANCOMYCIN 1.25 GM in IV D5W 500 ML IV SCH ×2 (11:46→20:47)
--- NOTE | 2017-10-24 11:55 | NUR ---
m/s post graduate internship: notes c/o 07/11 left breast pain, medicated with morphine 2mg ivp by rn. instructed to call for assistance. will monitor.
[2017-10-24] MEDS ORDERED: CEFTRIAXONE 1 G in IV D5W 50 ML IV SCH (12:00)
--- NOTE | 2017-10-24 12:25 | NUR ---
m/s jerker: notes voiced no discomfort. pt having lunch at this time. remains at bedside. will monitor.
--- NOTE | 2017-10-24 13:30 | NUR ---
m/s wood coater: notes iv to left hand infiltrated, h/l removed with tip intact. ice pack applied. inserted new iv to right hand, gauge #22 by rn instructor. remains at bedside. will continue to monitor.
--- NOTE | 2017-10-24 14:03 | NUR ---
m/s network operations center engineer: md visit dr. mauricio at bedside at this time. informed md pt wants more pain med with no new order at this time. will continue to monitor.
[2017-10-24] MEDS: IPRATROPIUM NEB FS 0.5 MG/2.5 ML AMPUL.NEB NEB SCH ×2 (14:12→20:38)
[2017-10-24 16:00] VITALS: BP 100/57
--- NOTE | 2017-10-24 16:17 | NUR ---
m/s patient support assistant: notes c/o 07/11 left breast pain, medicated with morphine 2mg ivp by rn. instructed to call for assistance. will monitor.
--- NOTE | 2017-10-24 16:47 | NUR ---
m/s unit secy: notes pt verbalized some relief of pain. denies n/v. instructed to call for assistance. awaiting for surgical consult per dr. mauricio, pt aware.
[2017-10-24] MEDS: CHANTIX 1 MG PO SCH (16:54)
--- NOTE | 2017-10-24 17:18 | NUR ---
m/s balance wheel screw hole driller: surgeon consult seen and examined by jessica (prisca) at this time. dinner served. instructed to call for assistance. will monitor.
--- NOTE | 2017-10-24 18:00 | NUR ---
m/s holistic nutritionist: surgeon f/u seen and examined by dr. patricia at this time. awaiting orders. needs attended. call light within reach.
--- NOTE | 2017-10-24 18:19 | NUR ---
m/s pin game machine inspector: notes order received from dr. patricia and consent obtained for needle aspiration, possible incision and drainage of left breast from pt.
--- NOTE | 2017-10-24 18:30 | NUR ---
m/s superintendent pipelines: notes resting comfortable in bed with no distress noted. pt for bedside needle aspiration with possible i&d of left breast. consent in chart. needs attended. will continue to monitor.
--- NOTE | 2017-10-24 19:30 | NUR ---
RN NOTE; RECEIVED PT IN BED AWAKE AND ALERT. BREATHING EVENLY, NO SOB. BAD . SKIN WARM AND DRY, L LEG DRESSING IN PLACE. DENIED ANY PAIN OR DISCOMFORT AT THIS TIME. NEEDS ATTENDED . BED LOW LOCKED. CALL LIGHT WITHIN REACH. WILL CONT TO MONITOR. Addendum: 10/24/17 at 2303 by SARAH SALGADO RN WRONG PT DOCUMENTATION.
--- NOTE | 2017-10-24 19:30 | NUR ---
RECEIVED PT IN BED AWAKE AND ALERT. BREATHING EVENLY. NO SOB. NAD . W/ INTERMITTENT L BREAST PAIN. STILL E/ REDNESS ON THE AREA. ANAND REMAINED CLOSED. NEEDS ATTENDED. BED LOW LOCKED .CALL LIGHT WITHIN REACH. WILL CONT TO MONITOR ,
[2017-10-24 20:00] VITALS: BP 109/55
--- NOTE | 2017-10-24 20:40 | NUR ---
MORPHINE 2MG GIVEN ORDERED FOR C/O LEFT BREAST PAIN. WILL CONT TO MONITOR ,
--- NOTE | 2017-10-24 21:00 | NUR ---
VANCOMYCIN WAS ADMINISTERED LATE DUE TO PER DAY SHIFT REPORT PT WAS ON AND OFF DISCONNECTED FROM HIS LAST DOSE OF IV VANCO AND ANT TOOK HER LONGER THAN 2HOURS TO FINISH THE DOSE. PHARMACY MADE AWARE AND ATB WAS HUNG LATE.
[2017-10-24] MEDS ORDERED: ATORVASTATIN 10 MG TABLET PO SCH (22:00)
[2017-10-24] MEDS: SENNOSIDES 8.6 MG TABLET PO SCH (22:11)
[2017-10-24] MEDS: ATORVASTATIN 10 MG TABLET PO SCH (22:12)
[2017-10-24] MEDS: OLANZAPINE 5 MG TABLET PO SCH (22:13)
[2017-10-25] MEDS: IPRATROPIUM NEB FS 0.5 MG/2.5 ML AMPUL.NEB NEB SCH ×4 (01:17→20:04)
[2017-10-25] MEDS: VANCOMYCIN 1.25 GM in IV D5W 500 ML IV SCH ×2 (03:53→11:37)
[2017-10-25 06:46] LABS: CALCIUM, SERUM 8.6 mg/dL (8.5-10.1); CREATININE 0.6 mg/dL (0.6-1.3); POTASSIUM 3.9 mmol/L (3.5-5.1)
--- NOTE | 2017-10-25 07:09 | NUR ---
RN NOTE; PT IN BED . SLEEPING, AROUSES EASILY. NO ACUTE EVENT DURING THE NIGHT . NEEDS ATTENDED . CALL LIGHT WITHIN REACH. WILL CONT TO MONITOR ,AND WILL ENDORSE TO AM SHIFT FOR C[place].
--- NOTE | 2017-10-25 07:20 | NUR ---
MS RN OPENING NOTES RECEIVED PT FROM NIGHTSHIFT NURSE IN STABLE CONDITION. PT IS A/O X4. NO SOB NOTED. BREATHING IS EVEN AND UNLABORED. PT COMPLAINS OF AN ACHING PAIN IN HER LEFT BREAST RATED A 10/10. WILL ADMINISTER PRN PAIN MEDICATION. IV ON RIGHT HAND 22G NOTED TO BE PATENT AND INTACT. NO REDNESS OR SIGNS OF INFILTRATION NOTED. BED IN LOW LOCKED POSITION, SIDE RAILS UP X2, CALL LIGHT WITHIN REACH. WILL CONTINUE TO MONITOR
[2017-10-25] MEDS ORDERED: LIDOCAINE 2%-EPI 1:100,000 30 ML VIAL TP ONE (08:00)
[2017-10-25] MEDS: MORPHINE SULFATE INJ 4 MG/ML DISP.SYRIN IV PRN ×4 (08:31→22:30)
[2017-10-25] MEDS: FUROSEMIDE 20 MG TABLET PO SCH (08:34)
[2017-10-25] MEDS: SENNOSIDES 8.6 MG TABLET PO SCH ×2 (08:34→21:14)
[2017-10-25] MEDS: PANTOPRAZOLE 40 MG TABLET.DR PO SCH ×2 (08:34→21:14)
[2017-10-25] MEDS: METFORMIN 500 MG TABLET PO SCH (08:35)
[2017-10-25] MEDS: OXYBUTYNIN CHLORIDE 5 MG TABLET PO SCH ×2 (08:35→18:22)
[2017-10-25] MEDS: Fluoxetine 10 mg capsule PO SCH (08:35)
[2017-10-25] MEDS: CHANTIX 1 MG PO SCH ×2 (08:35→18:22)
[2017-10-25 09:52] VITALS: BP 115/73
[2017-10-25 16:00] VITALS: BP 115/70
[2017-10-25] MEDS: VANCOMYCIN 1 GM in IV D5W 250 ML IV SCH (18:23)
--- NOTE | 2017-10-25 18:32 | NUR ---
MS RN NOTES NEEDLE ASPIRATION ALONG WITH I & D PERFORMED BY DR. KUHN AT BEDSIDE/ WOUND CULTURE TAKEN AND SENT TO LAB. WOUND ORDERS REVIEWED AND ACKNOWLEDGED.
--- NOTE | 2017-10-25 18:58 | NUR ---
MS RN CLOSING NOTES PT REMAINS STABLE. NO ACUTE CHANGES IN CONDITION DURING SHIFT. DRESSING CLEAN, DRY, AND INTACT. NEEDS ANTICIPATED FOR AND ATTENDED TO. ALL DUE MEDS GIVEN. WILL ENDORSE TO NIGHTSHIFT NURSE FOR C[place]
--- NOTE | 2017-10-25 19:30 | NUR ---
RN NOTE; RECEIVED PT IN BED AWAKE AND ALERT. BREATHING EVENLY. NO SOB.S/P NEEDLE ASPIRATION AND I&d ON THE L BREAST W/ NO COMPLICATION. PAIN TOLERATED WELL. DRESSING CDI. NEEDS ATTENDED. BED LOW LOCKED. CALL LIGHT WITHIN REACH. WILL CONT TO MONITOR,
[2017-10-25 20:00] VITALS: BP_SYST 109; BP_SYST 139; BP_DIAS 62; BP_DIAS 66
[2017-10-25] MEDS: ATORVASTATIN 10 MG TABLET PO SCH (21:14)
[2017-10-25] MEDS: OLANZAPINE 5 MG TABLET PO SCH (21:14)
--- NOTE | 2017-10-25 22:30 | NUR ---
MORPHINE GIVEN ORDERED PER PT'S REQUEST FOR C/O L BREAST PAIN. NEW IV LINE 22G WAS INSERTED PN R POSTERIOR UPPER ARM W/ GOOD BLOOD VENOUS RETURN. WILL CONT TO MONITOR ,
[2017-10-26] MEDS: IPRATROPIUM NEB FS 0.5 MG/2.5 ML AMPUL.NEB NEB SCH ×3 (01:11→13:30)
[2017-10-26] MEDS: VANCOMYCIN 1 GM in IV D5W 250 ML IV SCH ×2 (03:45→11:10)
[2017-10-26] MEDS: MORPHINE SULFATE INJ 4 MG/ML DISP.SYRIN IV PRN ×3 (06:11→14:21)
--- NOTE | 2017-10-26 06:11 | NUR ---
MORPHINE GIVEN ORDERED FOR C/O SEVERE L BREAST PAIN. WILL CONT TO MONITOR ,
--- NOTE | 2017-10-26 06:33 | NUR ---
RN NOTE; PT IN BED DOZING INTERMITTENTLY. BREATHING EVENLY. NO ACUTE EVENT DURING THE NIGHT . PAIN MEDICATION GIVEN ORDERED PER PT'S REQUEST EFFECTIVE. NEEDS ATTENDED. CALL LIGHT WITHIN REACH. WILL CONT TO MONITOR ,
[2017-10-26 07:03] LABS: CALCIUM, SERUM 8.8 mg/dL (8.5-10.1); CREATININE 0.6 mg/dL (0.6-1.3); POTASSIUM 3.4 mmol/L (3.5-5.1)
--- NOTE | 2017-10-26 07:30 | NUR ---
RN MS NOTES PT IN BED, AWAKE, ALERT AND ORIENTED, DENIES PAIN, NOT IN DISTRESS, CALL LIGHT WITHIN REACH, ASSISTED WITH NEEDS, KEPT COMFORTABLE.
[2017-10-26 08:00] VITALS: BP 105/48
[2017-10-26] MEDS: CHANTIX 1 MG PO SCH (08:43)
[2017-10-26] MEDS: SENNOSIDES 8.6 MG TABLET PO SCH (08:43)
[2017-10-26] MEDS: METFORMIN 500 MG TABLET PO SCH (08:43)
[2017-10-26] MEDS: PANTOPRAZOLE 40 MG TABLET.DR PO SCH (08:43)
[2017-10-26] MEDS: OXYBUTYNIN CHLORIDE 5 MG TABLET PO SCH (08:43)
[2017-10-26] MEDS: Fluoxetine 10 mg capsule PO SCH (08:43)
[2017-10-26] MEDS ORDERED: ASPIRIN EC 81 MG TABLET.DR PO SCH (09:00)
[2017-10-26] MEDS: FUROSEMIDE 20 MG TABLET PO SCH (09:00)
--- NOTE | 2017-10-26 12:08 | NUR ---
RN MS NOTES PT IN BED, AWAKE, ALERT AND ORIENTED, PAIN MEDICATION GIVEN FOR PAIN MANAGEMENT ORDERED, TREATMENT DONE AND DRESSING CHANGE DONE TO LEFT BREAST CELLULITIS, CALL LIGHT WITHIN REACH.
[2017-10-26] MEDS ORDERED: POTASSIUM CHLORIDE 20 MEQ TAB.PRT.SR PO SCH (12:30)
[2017-10-26 16:00] VITALS: BP 111/66
--- NOTE | 2017-10-26 16:20 | NUR ---
RN MS NOTES PT IN BED, AWAKE, ALERT AND ORIENTED, PAIN MEDICATION GIVEN FOR PAIN MANAGEMENT ORDERED, NOT IN DISTRESS, PT SEEN BY DR. JEWELL, DISCHARGE ORDER GIVEN, PT INFORMED, HOME HEALTH ARRANGED ORDERED BY DR. JEWELL, SPOKE WITH PARARESCUE MANAGER [place], PER DR. JEWELL, PATIENT WILL SEE HIM IN HIS OFFICE FOR ANTIBIOTIC AND PAIN MEDICATION ORDERS, PT VERBALIZED UNDERSTANDING, BELONGINGS ACCOUNTED FOR, PT REFUSED PHOTO OF HER LEFT BREAST CELLULITIS TO BE TAKEN, STATED THAT IT HURTS A LOT, ALSO REFUSED FLU VACCINE, PICKED UP BY FRIEND, LEFT IN STABLE CONDITION.
[2017-10-27] MEDS ORDERED: DAKINS QUARTER STRENGTH (0.125%) 480 ML BOTTLE TOP SCH (09:00)
== END 2017-10-26 16:20 | disposition home health service (06) | DRG 363 ==
LOC: ER 19:26 → MED 21:46 → MEDSG2 10-24 19:00
PROVIDERS: ADMIT Nurse Practitioner Primary Care; ATTEND Internal Medicine
PROC: 0H9U0ZX Drainage of Left Breast, Open Approach, Diagnostic (ICD-10-PCS; principal; 2017-10-25)
DX: N61.1 Abscess of the breast and nipple (principal); Z68.42 Body mass index [BMI] 45.0-49.9, adult; I10 Essential (primary) hypertension; J44.9 Chronic obstructive pulmonary disease, unspecified; E11.9 Type 2 diabetes mellitus without complications; I25.10 Atherosclerotic heart disease of native coronary artery without angina pectoris; Z88.5 Allergy status to narcotic agent; Z88.8 Allergy status to other drugs, medicaments and biological substances; Z90.710 Acquired absence of both cervix and uterus; Z79.899 Other long term (current) drug therapy; Z79.82 Long term (current) use of aspirin; F31.9 Bipolar disorder, unspecified; G89.29 Other chronic pain; I25.2 Old myocardial infarction; K21.9 Gastro-esophageal reflux disease without esophagitis; F41.0 Panic disorder [episodic paroxysmal anxiety]; Z79.84 Long term (current) use of oral hypoglycemic drugs; Z72.0 Tobacco use; M19.90 Unspecified osteoarthritis, unspecified site; E66.01 Morbid (severe) obesity due to excess calories; Z98.890 Other specified postprocedural states
CPT/HCPCS: 36415; 71045-TC; 80048-TC; 80053-TC; 80076-TC; 80202-TC; 83605-TC; 85025-TC; 85730-TC; 87040-TC; 87070-TC; 87081-TC; 94799-TC; A4606; A6253; A6403; J0696; J1170; J2270; J2405; J2543; J3370; J3490; J7040; J7050; J7060; Z7610

== ENCOUNTER 2017-10-29 14:16 | Emergency (ER) | payer OTHER ==
[~2017-10-29] VITALS: Ht 160 cm; Wt 117.9 kg
[~2017-10-29 14:16] MED LIST changes: +VARE1TAB PO
[2017-10-29 15:09] VITALS: BP 123/75
== END 2017-10-29 15:41 | disposition home or self-care (01) ==
LOC: ER 14:17
DX: Z48.01 Encounter for change or removal of surgical wound dressing (principal); N61.1 Abscess of the breast and nipple; K21.9 Gastro-esophageal reflux disease without esophagitis; E11.9 Type 2 diabetes mellitus without complications; F32.9 Major depressive disorder, single episode, unspecified; I25.2 Old myocardial infarction; F19.10 Other psychoactive substance abuse, uncomplicated; F17.200 Nicotine dependence, unspecified, uncomplicated; Z88.6 Allergy status to analgesic agent; Z88.5 Allergy status to narcotic agent; Z79.84 Long term (current) use of oral hypoglycemic drugs
CPT/HCPCS: A4606; A6402; Z7610

== ENCOUNTER 2017-12-25 12:34 | Emergency (ER) | payer OTHER ==
[~2017-12-25] VITALS: Ht 162.6 cm; Wt 122.5 kg
[~2017-12-25 12:34] MED LIST changes: +METF-440 PO; -METF500T4 PO; -TRAZ-147 PO; +TRAZ-214 PO
[2017-12-25 14:11] VITALS: BP 140/74
[2017-12-25] MEDS ORDERED: KETOROLAC TROMETHAMINE INJ 30 MG/ML VIAL IV ONE (15:00)
[2017-12-25 15:09] LABS: BASOPHILS # (AUTO) 0.5 /CMM (0.0-0.2); BASOPHILS % (AUTO) 4.2 % (0.0-2.0); EOSINOPHILS % (AUTO) 1.6 % (0.0-6.0); HEMATOCRIT 41 % (33-45); HEMOGLOBIN 13.9 g/dL (11.5-14.8); LYMPHOCYTES # (AUTO) 3.1 /CMM (0.8-4.8); LYMPHOCYTES % (AUTO) 25.3 % (20.0-44.0); MEAN CORPUSCULAR HGB CONC 34 g/dl (31.0-36.0); MEAN CORPUSCULAR VOLUME 85 fL (82-100); MONOCYTES # (AUTO) 0.4 /CMM (0.1-1.30); MONOCYTES % (AUTO) 3.5 % (2.0-12.0); NEUTROPHILS # (AUTO) 8.2 /CMM (1.8-8.9); NEUTROPHILS % (AUTO) 65.4 % (43.0-81.0); PLATELET COUNT (AUTO) 315 /CMM (150-450); RDW COEFFICIENT OF VARIATION 14.5 (11.5-15.0); RED BLOOD CELL COUNT(AUTO) 4.81 MIL/uL (4.0-5.2); WHITE BLOOD COUNT (AUTO) 12.4 K/uL (4.3-11.0)
[2017-12-25 15:19] LABS: CALCIUM, SERUM 9.2 mg/dL (8.5-10.1); CARBON DIOXIDE 27 mmol/L (21-32); CHLORIDE 103 mmol/L (98-107); CREATININE 0.7 mg/dL (0.6-1.3); GLUCOSE 99 mg/dL (74-106); INR 0.89 (0.85-1.15); POTASSIUM 3.5 mmol/L (3.5-5.1); SODIUM SERUM 139 mmol/L (136-145); UREA NITROGEN, BLOOD 17 mg/dL (7-18)
[2017-12-25 15:20] LABS: APPEARANCE,URINE Clear (CLEAR); BILIRUBIN,URINE Negative (NEGATIVE); BLOOD, URINE Negative Ery/uL (NEGATIVE); COLOR,URINE Yellow (YELLOW); KETONES,URINE Negative (NEGATIVE); LEUKOCYTE ESTERASE ,URINE Negative (NEGATIVE); NITRITE, URINE Negative (NEGATIVE); PH,URINE 5.5 (5.0-8.0); PROTEIN,URINE Negative (NEGATIVE); UGLUCOSE Negative (NEGATIVE); UROBILINOGEN,URINE 0.2 EU/dL (0.2)
[2017-12-25 15:28] LABS: TROPONIN I < 0.017 ng/mL (0.00-0.056)
[2017-12-25] MEDS ORDERED: KETOROLAC TROMETHAMINE INJ 30 MG/ML VIAL ONE (15:28)
--- NOTE | 2017-12-25 15:54 | NUR ---
PT MOVED TO ED BED 11.
[2017-12-25] MEDS ORDERED: IOHEXOL-350 100 ML VIAL IV ONE (15:57)
--- NOTE | 2017-12-25 16:07 | NUR ---
PT TO CT
--- NOTE | 2017-12-25 17:41 | NUR ---
Patient discharged to home in stable condition. Written and verbal after care instructions along with RX given. Patient verbalizes understanding of instruction.IV removed. Catheter intact and site benign. Pressure and 4x4 applied to site. No bleeding noted. VSS upon discharge
== END 2017-12-25 17:41 | disposition home or self-care (01) ==
LOC: ER 12:35
DX: G89.29 Other chronic pain (principal); M54.9 Dorsalgia, unspecified; K21.9 Gastro-esophageal reflux disease without esophagitis; F32.9 Major depressive disorder, single episode, unspecified; I25.2 Old myocardial infarction; E11.9 Type 2 diabetes mellitus without complications; F17.200 Nicotine dependence, unspecified, uncomplicated; Z88.5 Allergy status to narcotic agent; Z88.6 Allergy status to analgesic agent; Z79.84 Long term (current) use of oral hypoglycemic drugs
CPT/HCPCS: 36415; 72129-TC; 72132-TC; 80048-TC; 81000-TC; 84484-TC; 85025-TC; 85730-TC; A4606; J1885; Q9967; Z7610

== ENCOUNTER 2018-06-06 11:06 | Inpatient (IN) | payer OTHER ==
[2018-06-06] VITALS: BP 121/63
[~2018-06-06] VITALS: Ht 165.1 cm; Wt 85.3 kg
[~2018-06-06 11:06] MED LIST changes: -METF-440 PO; +METF500T6 PO
--- NOTE | 2018-06-06 11:24 | NUR ---
PT AMBULATORY TO ER BED 12 C/O HEADACHES X 2 WEEKS NOW, 3 DAYS AGO PT STARTED HAVING DIZZY SPELLS WORST WHEN BENDING DOWN. GOWNED AND PLACED ON MONITOR. VSS. AWAITING MD PRIDE.
--- NOTE | 2018-06-06 11:46 | NUR ---
MELINDA REDDY AT BEDSIDE FOR EVAL.
[2018-06-06] MEDS ORDERED: diphenhydrAMINE HCL 50 MG/ML VIAL IV ONE (12:00)
[2018-06-06] MEDS ORDERED: PROCHLORPERAZINE EDISYLATE 10 MG/2 ML VIAL IV ONE (12:00)
[2018-06-06] MEDS ORDERED: KETOROLAC TROMETHAMINE INJ 30 MG/ML VIAL IV ONE (12:00)
[2018-06-06] MEDS ORDERED: IV NS 0.9% 1,000 ML BAG IV ONE (12:00)
--- NOTE | 2018-06-06 12:05 | NUR ---
PT TO RADIOLOGY FOR HEAD CT SCAN VIA WHEELCHAIR.
[2018-06-06] MEDS ORDERED: KETOROLAC TROMETHAMINE INJ 30 MG/ML VIAL ONE (12:08)
[2018-06-06] MEDS ORDERED: PROCHLORPERAZINE EDISYLATE 10 MG/2 ML VIAL ONE (12:08)
[2018-06-06] MEDS ORDERED: diphenhydrAMINE HCL 50 MG/ML VIAL ONE (12:08)
[2018-06-06 12:26] LABS: BASOPHILS % (AUTO) 0.7 % (0.0-2.0); EOSINOPHILS % (AUTO) 1.6 % (0.0-6.0); HEMATOCRIT 36 % (33-45); HEMOGLOBIN 11.9 g/dL (11.5-14.8); LYMPHOCYTES # (AUTO) 2.1 /CMM (0.8-4.8); LYMPHOCYTES % (AUTO) 29.4 % (20.0-44.0); MEAN CORPUSCULAR HEMOGLOBIN 28 PG (26.0-33.0); MEAN CORPUSCULAR HGB CONC 33 g/dl (31.0-36.0); MEAN CORPUSCULAR VOLUME 86 fL (82-100); MONOCYTES # (AUTO) 0.2 /CMM (0.1-1.30); MONOCYTES % (AUTO) 3.3 % (2.0-12.0); NEUTROPHILS # (AUTO) 4.6 /CMM (1.8-8.9); PLATELET COUNT (AUTO) 244 /CMM (150-450); RDW COEFFICIENT OF VARIATION 15.5 (11.5-15.0)
--- NOTE | 2018-06-06 12:35 | NUR ---
PT STILL UNABLE TO PROVIDE URINE SAMPLER AT THIS TIME.
[2018-06-06 12:37] LABS: CALCIUM, SERUM 8.8 mg/dL (8.5-10.1); CREATININE 0.7 mg/dL (0.6-1.3); POTASSIUM 3.6 mmol/L (3.5-5.1)
[2018-06-06 12:43] LABS: ALBUMIN 3.2 g/dL (3.4-5.0); BILIRUBIN,DIRECT 0.1 mg/dL (0.0-0.2); BILIRUBIN,TOTAL 0.3 mg/dL (0.2-1.0); TOTAL PROTEIN, SERUM 6.6 g/dL (6.4-8.2)
[2018-06-06 12:57] LABS: INR 0.95 (0.85-1.15)
--- NOTE | 2018-06-06 13:08 | NUR ---
CALLED THE OFFICE OF DR JEWELL AND A PAGE WAS SENT OUT TO HIM
--- NOTE | 2018-06-06 14:09 | NUR ---
CANNOT REQUEST BED NURSE SUP PHONE IS OFF
--- NOTE | 2018-06-06 14:13 | NUR ---
CALLED NURSE SUP FOR TELE BED
--- NOTE | 2018-06-06 14:38 | NUR ---
RN NOTES RECEIVED REPORT FROM RONNY SONG RN
--- NOTE | 2018-06-06 14:39 | NUR ---
REPORT GIVEN TO KAYLEIGH HAWLEY. PT AWAITING TRANSFER TO FLOOR.
[2018-06-06 14:55] VITALS: BP 92/53
--- NOTE | 2018-06-06 14:55 | NUR ---
RN NOTES RECEIVED PT FROM ER VIA CRISTIANE. AMBULATORY. ALERT/ORIENTED X3, DENIES ANY PAIN/CHEST PAIN. TOLERATING ROOM AIR WELL, NO SOB NOTED. DENIES N/V. WITH INTACT AND PATENT LAC G20 HEPLOCK. VS AND INITIAL ASSESSMENT DONE. ORIENTED TO ROOM. SAFETY MEASURES IN PLACED. NOTIFIED DR JEWELL FOR ADMISSION ORDERS
--- NOTE | 2018-06-06 15:20 | NUR ---
RN NOTES RECEIVED CALL FROM DR JEWELL WITH ADMITTING ORDERS: ADMIT TO TELEMETRY WITH DIAGNOSIS:BRADYCARDIA. ROUTINE VITAL SIGNS, TAKE ORTHOSTATIC BP QSHIFT. HEPLOCK. CARDIAC DIET. CARDIAC ECHO. REPORTED ALL HOME MEDS, PER MD CONTINUE: ALBUTEROL SULFATE 2PUFF INH Q4HR PRN ATORVASTATIN 20MG PO Q HS FLUOXETINE HCL 20 MG PO QAM LANSOPARZOLE 30 MG PO QAM TRAZADONE HCL 350 MG PO QHS PRN CLONAZEPAM 0.5MG PO QDAILY PRN ADDITIONAL MED ORDER: IMITREX 50 MG QDAILY PRN FOR SEVERE HEADACHE ORDERS NOTED AND CARRIED OUT. MED RECON FAXED TO PHARMACY
[2018-06-06 15:53] LABS: APPEARANCE,URINE Clear (CLEAR); BILIRUBIN,URINE Negative (NEGATIVE); BLOOD, URINE Negative Ery/uL (NEGATIVE); COLOR,URINE Yellow (YELLOW); KETONES,URINE Negative (NEGATIVE); LEUKOCYTE ESTERASE ,URINE Negative (NEGATIVE); NITRITE, URINE Negative (NEGATIVE); PROTEIN,URINE Negative (NEGATIVE); UGLUCOSE Negative (NEGATIVE); UROBILINOGEN,URINE 0.2 EU/dL (0.2)
[2018-06-06 16:00] VITALS: BP 101/53
[2018-06-06] MEDS ORDERED: SUMATRIPTAN SUCCINATE 25 MG TABLET PO PRN (16:00)
[2018-06-06] MEDS ORDERED: TRAZODONE 50 MG TABLET PO PRN (16:00)
[2018-06-06] MEDS ORDERED: clonazePAM 0.5 MG TABLET PO PRN (16:00)
--- NOTE | 2018-06-06 19:06 | NUR ---
RN NOTES PT IN STABLE CONDITION. NO ACUTE DISTRESS NOTED THROUGHOUT SHIFT. SAFETY MEASURES OBSERVED AT ALL TIMES. ALL NEEDS ANTICIPATED. ENDORSED TO PM SHIFT RN FOR CARRINGTON
[2018-06-06] MEDS ORDERED: ALBUTEROL FS 2.5 MG/3 ML VIAL.NEB NEB PRN (19:30)
[2018-06-06 20:00] VITALS: BP_SYST 135; BP_DIAS 70; BP_DIAS 82
--- NOTE | 2018-06-06 20:00 | NUR ---
RN TRANSFER NOTES RECEIVED ON SHASHANK/O X3,ECHO IN PROGRESS.VISITOR AT BEDSIDE.WITH SALINE LOC LEFT AC INTACT AND PATENT.DENIES CHEST PAIN,SB -83 ON TELE MONITOR.CALL LIGHT IN REACH,NEEDS ANTICIPATED.
--- NOTE | 2018-06-06 20:30 | NUR ---
TRIM ATTACHER NOTES WENT OUT TO SMOKE ACCOMPANIED BY DUKE TERRAZAS.EXPLAINED RISK AND BENEFITS OF SMOKING,STIL INSIST TO GO TO SMOKE.WAIVER FOR SMOKING SIGNED BY PATIENT.
--- NOTE | 2018-06-06 21:25 | NUR ---
EMBEDDED SYSTEMS ENGINEER NOTES TRAZODONE 150MG FOR SLEEP GIVEN EARLY PER PATIENT REQUEST.
[2018-06-06] MEDS ORDERED: ATORVASTATIN 10 MG TABLET PO SCH (22:00)
[2018-06-07] VITALS (8 sets, daily range): BP systolic 99–144; BP diastolic 57–73
--- NOTE | 2018-06-07 06:36 | NUR ---
CELL PLASTERER NOTES SLEPT WELL AT NIGHT,NO PAIN,ORTHOSTATIC BP CHECKED AND RECORDED.HEART RATE REMAINS ON THE 50'S.CALL LIGHT IN REACH,NEEDS ATTENDED.WILL ENDORSE TO DAY NURSE FOR CARR[place]
[2018-06-07] MEDS ORDERED: PANTOPRAZOLE 40 MG TABLET.DR PO SCH (07:30)
[2018-06-07] MEDS ORDERED: Fluoxetine 10 mg capsule PO SCH (09:00)
--- NOTE | 2018-06-07 11:00 | NUR ---
MACHINES TECHNICIAN NOTES REQUESTING FOR DISCHARGE TO HOME BEFORE 1400.LEFT MESSAGE TO .WAITING TO CALL BACK.PATIENT MADE AWARE.
--- NOTE | 2018-06-07 11:30 | NUR ---
LOW EMISSION AUTOMOBILE DESIGNER OPENING NOTES RECEIVED BED SIDE REPORT FROM PM NURSE.PT IS A/O X4BRP,ON ROOM AIR.ASKING TO GO OUT FOR SMOKING,TOLD THAT WILL BE BACK SOON. LEFT AC IV INTACT AND PATENT.DENIES CHEST PAIN,NO SOB NO DISTRESS AT THIS TIME.ON TELE MONITOR SR 64.CALL LIGHT IN REACH,BED IS LOCKED AND IN LOW POSITION.WILL CONTINUE TO MONITOR.
--- NOTE | 2018-06-07 13:00 | NUR ---
SCALLOPER NOTES SEEN BY MADE AWARE ABOUT PATIENT CONCERN.MAY BE GET DISCHARGE TODAY,,WILL REVIEW HER CONDITION AND WILL LET US KNOW.CARDIOLOGY WILL BE AVAILABLE LATE.PATIENT MADE AWARE.DOCTOR TALKED TO THE PATIENT.
[2018-06-07] MEDS ORDERED: LAMO200T2 PO (15:35)
--- NOTE | 2018-06-07 15:50 | NUR ---
SLIDE ATTENDANT/MED-RECON CALLED [facility] AND OBTAINED UPDATED MEDICATION/DOSE OF THE PATIENT. MED-RECON LIST UPDATED, PRIMARY NURSE MADE AWARE AND TO NOTIFY MD.
--- NOTE | 2018-06-07 17:10 | NUR ---
RN NOTES SEEN BY OK TO D/C HOME FROM CARDIOLOGY POINT OF VIEW. MADE AWARE.OK TO CONTINUE ALL MEDS PER EMERGENCY DISPATCH OPERATOR.MED RECONCILIATION DONE.PATIENT MADE AWARE ABOUT THE DISCHARGE.
--- NOTE | 2018-06-07 17:45 | NUR ---
PATIENT DISCHARGE NOTE PATIENT D/C HOME IN STABLE CONDITION.NO SOB NO DISTRESS NOTED AT THIS TIME.REMOVED IV ,MINIMAL BLEEDING NOTED PRESSURE DRESSING APPLIED.REFUSED BODY CHECK.STATED THAT SHE DONT HAVE ANY WOUNDS ON THE BODY.SHE SAID SHE WILL GO BY BUS.NO NEED FOR ANY TRANSPORTATION.TOOK ALL THE BELONGINGS.SIGNED ALL PAPER WORK.EXIT CARE DONE.VERBALIZE UNDERSTANDING.MED RECONCILIATION GIVEN AND EXPLAINED.TOLD ABOUT F/U APPOINTMENT WITH PCP.AND INFORMATION GIVEN REGARDING APPOINTMENT.
== END 2018-06-07 17:50 | disposition home or self-care (01) | DRG 201 ==
LOC: ER 11:08 → TELE1 14:57
PROVIDERS: ADMIT Internal Medicine; ATTEND Internal Medicine
DX: R00.1 Bradycardia, unspecified (principal); E11.9 Type 2 diabetes mellitus without complications; F31.9 Bipolar disorder, unspecified; K21.9 Gastro-esophageal reflux disease without esophagitis; I25.10 Atherosclerotic heart disease of native coronary artery without angina pectoris; I25.2 Old myocardial infarction; F19.90 Other psychoactive substance use, unspecified, uncomplicated; Z88.6 Allergy status to analgesic agent; Z88.5 Allergy status to narcotic agent; Z88.8 Allergy status to other drugs, medicaments and biological substances; F17.200 Nicotine dependence, unspecified, uncomplicated; Z98.890 Other specified postprocedural states; Z79.899 Other long term (current) drug therapy; R42 Dizziness and giddiness; E66.9 Obesity, unspecified; J44.9 Chronic obstructive pulmonary disease, unspecified; G43.909 Migraine, unspecified, not intractable, without status migrainosus; Z86.73 Personal history of transient ischemic attack (TIA), and cerebral infarction without residual deficits
CPT/HCPCS: 36415; 70450-TC; 71045-TC; 80048-TC; 80076-TC; 81000-TC; 84484-TC; 84703-TC; 85025-TC; 85730-TC; 87081-TC; 93307-TC; A4606; J0780; J1200; J1885; J7030; Z7610

== ENCOUNTER 2018-06-13 01:15 | Emergency (ER) | payer OTHER ==
[~2018-06-13] VITALS: Ht 160 cm; Wt 85.3 kg
[~2018-06-13 01:15] MED LIST changes: -CLON0.5T PO; -FURO-145 PO; +LAMO200T2 PO; -METF500T6 PO; -OLAN15TA3 PO; -OXYB10TA PO; -TIOT18CA3 IH; -VARE1TAB PO
[2018-06-13 02:58] LABS: BASOPHILS % (AUTO) 0.4 % (0.0-2.0); EOSINOPHILS % (AUTO) 1.5 % (0.0-6.0); HEMATOCRIT 38 % (33-45); HEMOGLOBIN 12.1 g/dL (11.5-14.8); LYMPHOCYTES # (AUTO) 2.9 /CMM (0.8-4.8); LYMPHOCYTES % (AUTO) 31.1 % (20.0-44.0); MEAN CORPUSCULAR HEMOGLOBIN 28 PG (26.0-33.0); MEAN CORPUSCULAR HGB CONC 32 g/dl (31.0-36.0); MEAN CORPUSCULAR VOLUME 88 fL (82-100); MONOCYTES # (AUTO) 0.5 /CMM (0.1-1.30); MONOCYTES % (AUTO) 5.6 % (2.0-12.0); NEUTROPHILS # (AUTO) 5.8 /CMM (1.8-8.9); NEUTROPHILS % (AUTO) 61.4 % (43.0-81.0); PLATELET COUNT (AUTO) 255 /CMM (150-450); RDW COEFFICIENT OF VARIATION 16.5 (11.5-15.0); RED BLOOD CELL COUNT(AUTO) 4.34 MIL/uL (4.0-5.2); WHITE BLOOD COUNT (AUTO) 9.4 K/uL (4.3-11.0)
[2018-06-13 03:01] LABS: APPEARANCE,URINE CLEAR (CLEAR); BILIRUBIN,URINE 1+ (NEGATIVE); BLOOD, URINE NEGATIVE Ery/uL (NEGATIVE); COLOR,URINE YELLOW (YELLOW); KETONES,URINE TRACE (NEGATIVE); LEUKOCYTE ESTERASE ,URINE NEGATIVE (NEGATIVE); NITRITE, URINE NEGATIVE (NEGATIVE); PH,URINE 6.5 (5.0-8.0); PROTEIN,URINE NEGATIVE (NEGATIVE); UGLUCOSE NEGATIVE (NEGATIVE)
--- NOTE | 2018-06-13 03:01 | NUR ---
ULTRASOUND AT BEDSIDE.
[2018-06-13 03:03] VITALS: BP 122/76
[2018-06-13 03:08] LABS: CALCIUM, SERUM 8.9 mg/dL (8.5-10.1); CREATININE 0.7 mg/dL (0.6-1.3); POTASSIUM 3.6 mmol/L (3.5-5.1)
[2018-06-13 03:09] LABS: BACTERIA,URINE None seen /HPF (None Seen); RBC,URINE NONE SEEN /HPF (0-2); SQUAMOUS EPITHELIAL CELL,UR Few /HPF (None Seen); WBC,URINE 0-2 /HPF (0-3)
[2018-06-13] MEDS ORDERED: KETOROLAC TROMETHAMINE INJ 30 MG/ML VIAL ONE ×2 (03:22→03:25)
[2018-06-13] MEDS ORDERED: KETOROLAC TROMETHAMINE INJ 30 MG/ML VIAL IV ONE (03:30)
[2018-06-13] MEDS: KETOROLAC TROMETHAMINE INJ 60 MG/2 ML VIAL IM ONE (03:32)
--- NOTE | 2018-06-13 04:03 | NUR ---
Patient discharged to home in stable condition. Written and verbal after care instructions given. Patient verbalizes understanding of instruction. AMBULATORY WITH STABLE GAIT.
== END 2018-06-13 04:05 | disposition home or self-care (01) ==
LOC: ER 01:15
DX: R10.31 Right lower quadrant pain (principal); I49.9 Cardiac arrhythmia, unspecified; I25.2 Old myocardial infarction; K21.9 Gastro-esophageal reflux disease without esophagitis; E11.9 Type 2 diabetes mellitus without complications; F19.10 Other psychoactive substance abuse, uncomplicated; F31.9 Bipolar disorder, unspecified; F41.0 Panic disorder [episodic paroxysmal anxiety]; F17.200 Nicotine dependence, unspecified, uncomplicated; F10.10 Alcohol abuse, uncomplicated; Y90.9 Presence of alcohol in blood, level not specified; Z95.0 Presence of cardiac pacemaker
CPT/HCPCS: 36415; 76856-TC; 80048-TC; 81000-TC; 85025-TC; A4606; J1885; Z7610

== ENCOUNTER 2018-06-24 21:53 | Emergency (ER) | payer OTHER ==
[~2018-06-24] VITALS: Ht 160 cm; Wt 82.1 kg
[2018-06-24 21:59] VITALS: BP 126/76
--- NOTE | 2018-06-24 22:20 | NUR ---
CALLED PT'S NAME, NO RESPONSE
--- NOTE | 2018-06-24 22:31 | NUR ---
CALLED PT'S NAME THREE TIMES, NO RESPONSE, WILL TRY AGAIN AT A LATER TIME
--- NOTE | 2018-06-24 23:03 | NUR ---
CALLED PT'S NAME THREE TIMES, NO RESPONSE. PT LEFT AFTER TRIAGE WITHOUT BEING SEEN BY ER PHYSICIAN. MADE AWARE
== END 2018-06-24 23:06 | disposition left against medical advice (07) ==
LOC: ER 21:55
DX: Z53.21 Procedure and treatment not carried out due to patient leaving prior to being seen by health care provider (principal); K21.9 Gastro-esophageal reflux disease without esophagitis; E11.9 Type 2 diabetes mellitus without complications; F31.9 Bipolar disorder, unspecified; F41.0 Panic disorder [episodic paroxysmal anxiety]; I25.10 Atherosclerotic heart disease of native coronary artery without angina pectoris; F17.200 Nicotine dependence, unspecified, uncomplicated; Z95.0 Presence of cardiac pacemaker; Z88.6 Allergy status to analgesic agent; Z88.5 Allergy status to narcotic agent; Z79.899 Other long term (current) drug therapy
CPT/HCPCS: A4606; Z7610

== ENCOUNTER 2018-09-12 23:11 | Emergency (ER) | payer OTHER ==
[~2018-09-12] VITALS: Ht 160 cm; Wt 79.4 kg
[2018-09-12 23:11] VITALS: BP 133/63
--- NOTE | 2018-09-12 23:58 | NUR ---
BRETT LANDA AT BEDSIDE FOR EVAL.
== END 2018-09-13 01:42 | disposition home or self-care (01) ==
LOC: ER 23:14
DX: H60.91 Unspecified otitis externa, right ear (principal); I25.10 Atherosclerotic heart disease of native coronary artery without angina pectoris; I25.2 Old myocardial infarction; E11.9 Type 2 diabetes mellitus without complications; F31.9 Bipolar disorder, unspecified; K21.9 Gastro-esophageal reflux disease without esophagitis; F41.0 Panic disorder [episodic paroxysmal anxiety]; F17.200 Nicotine dependence, unspecified, uncomplicated; Z88.5 Allergy status to narcotic agent; Z88.6 Allergy status to analgesic agent; Z79.899 Other long term (current) drug therapy; Z95.0 Presence of cardiac pacemaker
CPT/HCPCS: A4606; Z7610

== ENCOUNTER 2018-10-08 18:27 | Emergency (ER) | payer OTHER ==
[~2018-10-08] VITALS: Ht 160 cm; Wt 78.9 kg
--- NOTE | 2018-10-08 18:54 | NUR ---
PT BIBHUSBAND MIGRAINE MANRIQUEZ SINCE THIS AM, PT AAOX4, RESPIRATIONS EVEN AND UNLABORED, NO SOB, NO DIZZINESS NOTED, NO VOMITTING NOTED, NAD NOTED, PENDING ER PROVDER EVAL
[2018-10-08] MEDS ORDERED: IV NS 0.9% 1,000 ML BAG IV ONE (19:30)
[2018-10-08] MEDS ORDERED: diphenhydrAMINE HCL 50 MG/ML VIAL IV ONE (19:30)
[2018-10-08] MEDS ORDERED: KETOROLAC TROMETHAMINE INJ 60 MG/2 ML VIAL IM ONE ×2 (19:30→19:45)
[2018-10-08] MEDS ORDERED: diphenhydrAMINE HCL 50 MG/ML VIAL ONE (19:44)
[2018-10-08 20:06] LABS: BASOPHILS % (AUTO) 0.6 % (0.0-2.0); EOSINOPHILS % (AUTO) 1.7 % (0.0-6.0); HEMATOCRIT 37 % (33-45); HEMOGLOBIN 12.3 g/dL (11.5-14.8); LYMPHOCYTES # (AUTO) 2.9 /CMM (0.8-4.8); LYMPHOCYTES % (AUTO) 37.7 % (20.0-44.0); MEAN CORPUSCULAR HGB CONC 33 g/dl (31.0-36.0); MEAN CORPUSCULAR VOLUME 91 fL (82-100); MONOCYTES # (AUTO) 0.4 /CMM (0.1-1.30); MONOCYTES % (AUTO) 5.8 % (2.0-12.0); NEUTROPHILS # (AUTO) 4.2 /CMM (1.8-8.9); NEUTROPHILS % (AUTO) 54.2 % (43.0-81.0); PLATELET COUNT (AUTO) 266 /CMM (150-450); RED BLOOD CELL COUNT(AUTO) 4.06 MIL/uL (4.0-5.2); WHITE BLOOD COUNT (AUTO) 7.7 K/uL (4.3-11.0)
[2018-10-08 20:12] LABS: CARBON DIOXIDE 29 mmol/L (21-32); CHLORIDE 106 mmol/L (98-107); CREATININE 0.8 mg/dL (0.6-1.3); GLUCOSE 93 mg/dL (74-106); SODIUM SERUM 140 mmol/L (136-145); UREA NITROGEN, BLOOD 9 mg/dL (7-18)
[2018-10-08 20:16] LABS: CHOLESTEROL 210 mg/dL (<200); HDL CHOLESTEROL 55 mg/dL (40-60); LDL 135 mg/dL (0-99); TRIGLYCERIDES 106 mg/dL (30-150)
[2018-10-08 20:17] LABS: ALANINE AMINOTRANSFERASE 17 U/L (12-78); ALBUMIN 3.6 g/dL (3.4-5.0); ALKALINE PHOSPHATASE 90 U/L (46-116); ASPARTATE AMINOTRANSFERASE 14 U/L (15-37); BILIRUBIN,DIRECT 0.1 mg/dL (0.0-0.2); BILIRUBIN,TOTAL 0.3 mg/dL (0.2-1.0); TOTAL PROTEIN, SERUM 7.1 g/dL (6.4-8.2)
--- NOTE | 2018-10-08 20:19 | NUR ---
PER MAUREEN SMITH TO ADMINISTER TORADOL 60MG IVP INSTEAD OF IM.
[2018-10-08 21:43] VITALS: BP 120/80
--- NOTE | 2018-10-08 21:44 | NUR ---
DPatient discharged to home in stable condition. Written and verbal after care instructions given. Patient verbalizes understanding of instruction. IV removed. Catheter intact and site benign. Pressure and 4x4 applied to site. No bleeding noted.
== END 2018-10-08 21:45 | disposition home or self-care (01) ==
LOC: ER 18:27
DX: R51 Headache (principal); I25.10 Atherosclerotic heart disease of native coronary artery without angina pectoris; I25.2 Old myocardial infarction; E11.9 Type 2 diabetes mellitus without complications; F31.9 Bipolar disorder, unspecified; K21.9 Gastro-esophageal reflux disease without esophagitis; F41.0 Panic disorder [episodic paroxysmal anxiety]; F17.210 Nicotine dependence, cigarettes, uncomplicated; Z95.0 Presence of cardiac pacemaker; Z86.73 Personal history of transient ischemic attack (TIA), and cerebral infarction without residual deficits; Z88.5 Allergy status to narcotic agent; Z88.6 Allergy status to analgesic agent; Z79.899 Other long term (current) drug therapy
CPT/HCPCS: 36415; 70450; 71045; 80048; 80061; 80076; 84484; 85025; 85730; 93005; 96374; 96375; 99284; A4606; J1200; J1885; J7030; Z7610

== ENCOUNTER 2018-10-22 15:36 | Emergency (ER) | payer OTHER ==
[~2018-10-22] VITALS: Ht 160 cm; Wt 75.7 kg
[2018-10-22 15:47] VITALS: BP 113/66
--- NOTE | 2018-10-22 16:23 | NUR ---
Patient discharged to home in stable condition. Written and verbal after care instructions given. Patient verbalizes understanding of instruction.
== END 2018-10-22 16:22 | disposition home or self-care (01) ==
LOC: ER 15:38
DX: H01.006 Unspecified blepharitis left eye, unspecified eyelid (principal); H01.003 Unspecified blepharitis right eye, unspecified eyelid; I25.10 Atherosclerotic heart disease of native coronary artery without angina pectoris; I25.2 Old myocardial infarction; E11.9 Type 2 diabetes mellitus without complications; F31.9 Bipolar disorder, unspecified; K21.9 Gastro-esophageal reflux disease without esophagitis; F41.0 Panic disorder [episodic paroxysmal anxiety]; F17.200 Nicotine dependence, unspecified, uncomplicated; Z88.5 Allergy status to narcotic agent; Z88.6 Allergy status to analgesic agent; Z95.0 Presence of cardiac pacemaker; Z79.899 Other long term (current) drug therapy
CPT/HCPCS: 99283; A4606; Z7610

== ENCOUNTER 2018-11-18 20:37 | Emergency (ER) | payer OTHER ==
[~2018-11-18] VITALS: Ht 160 cm; Wt 81.6 kg
[2018-11-18 20:49] VITALS: BP 148/78
--- NOTE | 2018-11-18 23:08 | NUR ---
PT LEFT PRIOR TO DISCHARGE AND AFTERCARE INFORMATION GIVEN, UNWITNESSED BY NURSING STAFF. PT ELOPED.
== END 2018-11-18 23:09 | disposition left against medical advice (07) ==
LOC: ER 20:37
DX: M25.572 Pain in left ankle and joints of left foot (principal); I25.10 Atherosclerotic heart disease of native coronary artery without angina pectoris; I25.2 Old myocardial infarction; E11.9 Type 2 diabetes mellitus without complications; F31.9 Bipolar disorder, unspecified; F17.200 Nicotine dependence, unspecified, uncomplicated; K21.9 Gastro-esophageal reflux disease without esophagitis; F41.0 Panic disorder [episodic paroxysmal anxiety]; Z95.0 Presence of cardiac pacemaker; Z88.5 Allergy status to narcotic agent; Z88.6 Allergy status to analgesic agent; Z79.899 Other long term (current) drug therapy
CPT/HCPCS: 73610; 99283; A4606

== ENCOUNTER 2018-12-05 22:23 | Emergency (ER) | payer OTHER ==
[~2018-12-05] VITALS: Ht 160 cm; Wt 86.2 kg
--- NOTE | 2018-12-05 22:36 | NUR ---
DIZZINESS W/ GENERALIZED WEAKNESS X MONDAY, FRONTAL HEADACHE NAUSEA, NO VOMITING, DEPRESSION, DENIES SI/HI. PT AOX3 RR EVEN AND UNLABORED. NO SOB NOTED. NAD NOTED. NO NVD AT THIS TIME. PT GOWNED AND PLACED ON MONITOR. URINE COLLECTED.
[2018-12-05] MEDS ORDERED: IV NS 0.9% 500 ML BAG IV ONE (23:30)
--- NOTE | 2018-12-05 23:32 | NUR ---
INFORMED DR. HODGE PT HEADACHE 07/11 AT THIS TIME. VERBAL ORDERS PER DR. HODGE TO GIVE TYLENOL 650MG PO ONE TIME.
[2018-12-05] MEDS ORDERED: ACETAMINOPHEN 325 MG TABLET ONE (23:35)
[2018-12-05 23:43] LABS: BASOPHILS % (AUTO) 0.5 % (0.0-2.0); EOSINOPHILS % (AUTO) 0.9 % (0.0-6.0); HEMATOCRIT 38 % (33-45); HEMOGLOBIN 12.7 g/dL (11.5-14.8); LYMPHOCYTES # (AUTO) 2.7 /CMM (0.8-4.8); LYMPHOCYTES % (AUTO) 36.4 % (20.0-44.0); MEAN CORPUSCULAR HGB CONC 33 g/dl (31.0-36.0); MEAN CORPUSCULAR VOLUME 89 fL (82-100); MONOCYTES # (AUTO) 0.4 /CMM (0.1-1.30); MONOCYTES % (AUTO) 4.7 % (2.0-12.0); NEUTROPHILS # (AUTO) 4.3 /CMM (1.8-8.9); NEUTROPHILS % (AUTO) 57.5 % (43.0-81.0); PLATELET COUNT (AUTO) 246 /CMM (150-450); RED BLOOD CELL COUNT(AUTO) 4.28 MIL/uL (4.0-5.2); WHITE BLOOD COUNT (AUTO) 7.5 K/uL (4.3-11.0)
[2018-12-05 23:58] LABS: ALBUMIN 3.7 g/dL (3.4-5.0); BILIRUBIN,DIRECT 0.1 mg/dL (0.0-0.2); BILIRUBIN,TOTAL 0.3 mg/dL (0.2-1.0); TOTAL PROTEIN, SERUM 7.2 g/dL (6.4-8.2)
[2018-12-06] MEDS ORDERED: ACETAMINOPHEN 325 MG TABLET PO ONE
[2018-12-06 01:07] LABS: APPEARANCE,URINE CLEAR (CLEAR); BILIRUBIN,URINE NEGATIVE (NEGATIVE); BLOOD, URINE NEGATIVE Ery/uL (NEGATIVE); COLOR,URINE YELLOW (YELLOW); KETONES,URINE NEGATIVE (NEGATIVE); LEUKOCYTE ESTERASE ,URINE NEGATIVE (NEGATIVE); NITRITE, URINE NEGATIVE (NEGATIVE); PROTEIN,URINE NEGATIVE (NEGATIVE); UGLUCOSE NEGATIVE (NEGATIVE); UROBILINOGEN,URINE 0.2 EU/dL (0.2)
--- NOTE | 2018-12-06 01:49 | NUR ---
Patient discharged to home in stable condition. Written and verbal after care instructions given. Patient verbalizes understanding of instruction. ambulatory with a steady gait noted. pt aaox4 no acute distress noted, resp even and unlabored. pt denies pain or discomfort at this time. IV removed. Catheter intact and site benign. Pressure and 4x4 applied to site. No bleeding noted.
[2018-12-06 01:50] VITALS: BP 106/58
== END 2018-12-06 01:51 | disposition home or self-care (01) ==
LOC: ER 22:28
DX: E86.0 Dehydration (principal); I49.8 Other specified cardiac arrhythmias; R53.1 Weakness; E11.9 Type 2 diabetes mellitus without complications; F32.9 Major depressive disorder, single episode, unspecified; I25.2 Old myocardial infarction; F43.10 Post-traumatic stress disorder, unspecified; K21.9 Gastro-esophageal reflux disease without esophagitis; F41.0 Panic disorder [episodic paroxysmal anxiety]; E78.5 Hyperlipidemia, unspecified; G43.909 Migraine, unspecified, not intractable, without status migrainosus; F17.200 Nicotine dependence, unspecified, uncomplicated; Z95.0 Presence of cardiac pacemaker; Z90.710 Acquired absence of both cervix and uterus; Z98.890 Other specified postprocedural states; Z88.5 Allergy status to narcotic agent; Z88.6 Allergy status to analgesic agent; Z79.899 Other long term (current) drug therapy
CPT/HCPCS: 36415; 80076; 81001; 82962; 83690; 85025; 93005; 99284; A4606; J7040; 81000-TC

== ENCOUNTER 2019-02-20 16:58 | Emergency (ER) ==
[~2019-02-20] VITALS: Ht 160 cm; Wt 80.7 kg
--- NOTE | 2019-02-20 17:17 | NUR ---
CALLED IN WAITNG ROOM. NO ANSWER
--- NOTE | 2019-02-20 17:30 | NUR ---
patient c/o chronic ear pain which she sees a specialist for. c/o slight bloody looking drainage earlier today. resolved. no other complaints at this time.
--- NOTE | 2019-02-20 17:54 | NUR ---
Patient discharged to home in stable condition. Written and verbal after care instructions given. Patient verbalizes understanding of instruction.
[2019-02-20 17:56] VITALS: BP 129/74
== END 2019-02-20 17:57 | disposition home or self-care (01) ==
LOC: ER 17:02
DX: H61.21 Impacted cerumen, right ear (principal); E11.9 Type 2 diabetes mellitus without complications; F31.9 Bipolar disorder, unspecified; F41.0 Panic disorder [episodic paroxysmal anxiety]; F43.10 Post-traumatic stress disorder, unspecified; I25.10 Atherosclerotic heart disease of native coronary artery without angina pectoris; I25.2 Old myocardial infarction; I49.9 Cardiac arrhythmia, unspecified; F19.10 Other psychoactive substance abuse, uncomplicated; K21.9 Gastro-esophageal reflux disease without esophagitis; F17.200 Nicotine dependence, unspecified, uncomplicated; Z90.710 Acquired absence of both cervix and uterus; Z95.0 Presence of cardiac pacemaker; Z88.5 Allergy status to narcotic agent; Z88.6 Allergy status to analgesic agent

== ENCOUNTER 2019-03-29 00:16 | Emergency (ER) | payer OTHER ==
[~2019-03-29] VITALS: Ht 160 cm; Wt 84.8 kg
[2019-03-29 01:09] VITALS: BP 136/82
== END 2019-03-29 01:41 | disposition home or self-care (01) ==
LOC: ER 00:26
DX: K08.89 Other specified disorders of teeth and supporting structures (principal); E11.9 Type 2 diabetes mellitus without complications; F43.10 Post-traumatic stress disorder, unspecified; I25.10 Atherosclerotic heart disease of native coronary artery without angina pectoris; I25.2 Old myocardial infarction; F19.10 Other psychoactive substance abuse, uncomplicated; F31.9 Bipolar disorder, unspecified; K21.9 Gastro-esophageal reflux disease without esophagitis; F17.200 Nicotine dependence, unspecified, uncomplicated; Z90.710 Acquired absence of both cervix and uterus; Z88.5 Allergy status to narcotic agent; Z88.6 Allergy status to analgesic agent; Z95.0 Presence of cardiac pacemaker

== ENCOUNTER → 2019-05-08 | Emergency (ER) | payer OTHER ==
[~2019-05-08] VITALS: Ht 160 cm; Wt 83.0 kg
[2019-05-08 00:41] VITALS: BP 143/67
--- NOTE | 2019-05-08 01:04 | NUR ---
Patient discharged to home in stable condition. Written and verbal after care instructions given. Patient verbalizes understanding of instruction.
== END | disposition home or self-care (01) ==
LOC: ER 00:11
DX: S60.221A Contusion of right hand, initial encounter (principal); E11.9 Type 2 diabetes mellitus without complications; F43.10 Post-traumatic stress disorder, unspecified; I25.2 Old myocardial infarction; I25.10 Atherosclerotic heart disease of native coronary artery without angina pectoris; F19.10 Other psychoactive substance abuse, uncomplicated; F31.9 Bipolar disorder, unspecified; K21.9 Gastro-esophageal reflux disease without esophagitis; F17.200 Nicotine dependence, unspecified, uncomplicated; Z95.0 Presence of cardiac pacemaker; Z90.49 Acquired absence of other specified parts of digestive tract; Z98.890 Other specified postprocedural states; Z88.5 Allergy status to narcotic agent; Z88.6 Allergy status to analgesic agent; X58.XXXA Exposure to other specified factors, initial encounter; Y93.89 Activity, other specified; Y92.89 Other specified places as the place of occurrence of the external cause; Y99.8 Other external cause status

== ENCOUNTER 2019-05-12 20:56 | Emergency (ER) | payer OTHER ==
[~2019-05-12] VITALS: Ht 160 cm; Wt 81.6 kg
[2019-05-12 21:03] VITALS: BP 114/69
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
[2019-05-12] MEDS ORDERED: HYDROCODONE/APAP 5/325MG 1 EACH TABLET PO ONE (22:00)
[2019-05-12] MEDS ORDERED: LIDOCAINE VISCOUS 2% UD 15 ML UDC MM ONE (22:00)
[2019-05-12] MEDS ORDERED: KETOROLAC TROMETHAMINE INJ 30 MG/ML VIAL IV ONE (22:00)
[2019-05-12] MEDS ORDERED: LIDOCAINE VISCOUS 2% UD 15 ML UDC ONE (22:03)
[2019-05-12] MEDS ORDERED: HYDROCODONE/APAP 5/325MG 1 EACH TABLET ONE (22:03)
[2019-05-12] MEDS ORDERED: KETOROLAC TROMETHAMINE 15 MG/ML VIAL ONE (22:03)
[2019-05-12 22:06] LABS: BASOPHILS % (AUTO) 0.5 % (0.0-2.0); HEMOGLOBIN 12.1 g/dL (11.5-14.8); LYMPHOCYTES # (AUTO) 3.1 /CMM (0.8-4.8); MONOCYTES # (AUTO) 0.4 /CMM (0.1-1.30)
[2019-05-12 22:12] LABS: EOSINOPHILS % (AUTO) 3.9 % (0.0-6.0); HEMATOCRIT 36 % (33-45); LYMPHOCYTES % (AUTO) 44.4 % (20.0-44.0); MEAN CORPUSCULAR HGB CONC 34 g/dl (31.0-36.0); MEAN CORPUSCULAR VOLUME 91 fL (82-100); MONOCYTES % (AUTO) 5.9 % (2.0-12.0); NEUTROPHILS # (AUTO) 3.1 /CMM (1.8-8.9); NEUTROPHILS % (AUTO) 45.3 % (43.0-81.0); PLATELET COUNT (AUTO) 235 /CMM (150-450); RED BLOOD CELL COUNT(AUTO) 3.95 MIL/uL (4.0-5.2)
[2019-05-12 22:18] LABS: CALCIUM, SERUM 7.8 mg/dL (8.5-10.1); CREATININE 0.7 mg/dL (0.6-1.3)
[2019-05-12 22:29] LABS: POTASSIUM 3.4 mmol/L (3.5-5.1)
[2019-05-12] MEDS ORDERED: IOHEXOL-300 100 ML VIAL IV ONE (22:53)
--- NOTE | 2019-05-12 23:44 | NUR ---
PT ACCIDENTALLY PULLED IV, APPLIED PRESSURE TO SITE, NO BLEEDING NOTED.
--- NOTE | 2019-05-13 01:08 | NUR ---
PT NO LONGER WANTING TO STAY IN ER. PT LEFT ER. NOTIFIED.
== END 2019-05-13 01:11 | disposition left against medical advice (07) ==
LOC: ER 20:58
DX: K08.89 Other specified disorders of teeth and supporting structures (principal); R51 Headache; E11.9 Type 2 diabetes mellitus without complications; I25.10 Atherosclerotic heart disease of native coronary artery without angina pectoris; F32.9 Major depressive disorder, single episode, unspecified; F43.10 Post-traumatic stress disorder, unspecified; I25.2 Old myocardial infarction; F17.200 Nicotine dependence, unspecified, uncomplicated; Z95.0 Presence of cardiac pacemaker; K21.9 Gastro-esophageal reflux disease without esophagitis; Z90.710 Acquired absence of both cervix and uterus; Z95.818 Presence of other cardiac implants and grafts; Z88.5 Allergy status to narcotic agent; Z88.6 Allergy status to analgesic agent; Z79.899 Other long term (current) drug therapy
CPT/HCPCS: 36415; 70487; 80048; 85025; 96374; 99284; J1885; Q9967

== ENCOUNTER 2019-05-14 14:59 | Emergency (ER) | payer OTHER ==
[~2019-05-14] VITALS: Ht 160 cm; Wt 80.7 kg
[2019-05-14 15:38] LABS: BASOPHILS # (AUTO) 0.1 /CMM (0.0-0.2); BASOPHILS % (AUTO) 0.7 % (0.0-2.0); EOSINOPHILS % (AUTO) 3.6 % (0.0-6.0); HEMATOCRIT 36 % (33-45); HEMOGLOBIN 12.2 g/dL (11.5-14.8); LYMPHOCYTES # (AUTO) 2.5 /CMM (0.8-4.8); LYMPHOCYTES % (AUTO) 32.1 % (20.0-44.0); MEAN CORPUSCULAR HGB CONC 34 g/dl (31.0-36.0); MEAN CORPUSCULAR VOLUME 92 fL (82-100); MONOCYTES # (AUTO) 0.5 /CMM (0.1-1.30); MONOCYTES % (AUTO) 6.2 % (2.0-12.0); NEUTROPHILS # (AUTO) 4.4 /CMM (1.8-8.9); NEUTROPHILS % (AUTO) 57.4 % (43.0-81.0); PLATELET COUNT (AUTO) 239 /CMM (150-450); RED BLOOD CELL COUNT(AUTO) 3.94 MIL/uL (4.0-5.2); WHITE BLOOD COUNT (AUTO) 7.7 K/uL (4.3-11.0)
[2019-05-14 15:42] LABS: APPEARANCE,URINE Clear (CLEAR); BILIRUBIN,URINE Negative (NEGATIVE); BLOOD, URINE Negative Ery/uL (NEGATIVE); COLOR,URINE Yellow (YELLOW); KETONES,URINE Negative (NEGATIVE); LEUKOCYTE ESTERASE ,URINE Negative (NEGATIVE); NITRITE, URINE Negative (NEGATIVE); PH,URINE 5.5 (5.0-8.0); PROTEIN,URINE Negative (NEGATIVE); UGLUCOSE Negative (NEGATIVE); UROBILINOGEN,URINE 0.2 EU/dL (0.2)
[2019-05-14 15:44] LABS: CALCIUM, SERUM 8.1 mg/dL (8.5-10.1); CARBON DIOXIDE 26 mmol/L (21-32); CHLORIDE 110 mmol/L (98-107); CREATININE 0.7 mg/dL (0.6-1.3); GLUCOSE 113 mg/dL (74-106); SODIUM SERUM 143 mmol/L (136-145); UREA NITROGEN, BLOOD 9 mg/dL (7-18)
[2019-05-14 15:50] LABS: ALANINE AMINOTRANSFERASE 17 U/L (12-78); ALBUMIN 3.1 g/dL (3.4-5.0); ALKALINE PHOSPHATASE 91 U/L (46-116); ASPARTATE AMINOTRANSFERASE 17 U/L (15-37); BILIRUBIN,DIRECT 0.1 mg/dL (0.0-0.2); BILIRUBIN,TOTAL 0.2 mg/dL (0.2-1.0); SALICYLATE 4.4 mg/dL (2.8-20.0); TOTAL PROTEIN, SERUM 6.3 g/dL (6.4-8.2)
[2019-05-14 15:52] LABS: ACETAMINOPHEN < 2 ug/ml (10-30); ALCOHOL, BLOOD < 3 mg/dL (0-0)
--- NOTE | 2019-05-14 17:23 | NUR ---
CALLED [facility] TO SET UP TRANSPORT BACK TO [facility]
--- NOTE | 2019-05-14 17:32 | NUR ---
[facility] ETA 90 MINS
[2019-05-14 19:00] VITALS: BP 116/65
== END 2019-05-14 19:08 ==
LOC: ER 15:03
DX: F32.9 Major depressive disorder, single episode, unspecified (principal); E11.9 Type 2 diabetes mellitus without complications; I25.10 Atherosclerotic heart disease of native coronary artery without angina pectoris; F43.10 Post-traumatic stress disorder, unspecified; I25.2 Old myocardial infarction; F17.200 Nicotine dependence, unspecified, uncomplicated; K21.9 Gastro-esophageal reflux disease without esophagitis; Z95.0 Presence of cardiac pacemaker; Z90.710 Acquired absence of both cervix and uterus; Z98.890 Other specified postprocedural states; Z88.5 Allergy status to narcotic agent; Z88.6 Allergy status to analgesic agent; Z79.899 Other long term (current) drug therapy
CPT/HCPCS: 36415; 80048; 80076; 80305; 80307; 80329; 81001; 85025; 99285; G0480; 81000-TC

== ENCOUNTER 2019-05-15 16:53 | Emergency (ER) | payer OTHER ==
[~2019-05-15] VITALS: Ht 160 cm; Wt 85.7 kg
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
--- NOTE | 2019-05-15 17:19 | NUR ---
MELINDA REDDY AT BEDSIDE FOR EVAL.
--- NOTE | 2019-05-15 18:00 | NUR ---
PT PLACED ON 5150 HOLD FOR DTS. MELINDA REDDY AWARE.
--- NOTE | 2019-05-15 18:30 | NUR ---
CEMENT FINISHING SUPERVISOR AT BEDSIDE FOR BLOOD DRAW.
[2019-05-15 18:36] LABS: BASOPHILS % (AUTO) 0.4 % (0.0-2.0); HEMATOCRIT 37 % (33-45); HEMOGLOBIN 12.5 g/dL (11.5-14.8); LYMPHOCYTES # (AUTO) 2.1 /CMM (0.8-4.8); LYMPHOCYTES % (AUTO) 24.4 % (20.0-44.0); MEAN CORPUSCULAR HGB CONC 34 g/dl (31.0-36.0); MEAN CORPUSCULAR VOLUME 92 fL (82-100); MONOCYTES # (AUTO) 0.5 /CMM (0.1-1.30); MONOCYTES % (AUTO) 5.8 % (2.0-12.0); NEUTROPHILS # (AUTO) 5.7 /CMM (1.8-8.9); NEUTROPHILS % (AUTO) 66.4 % (43.0-81.0); PLATELET COUNT (AUTO) 238 /CMM (150-450); RED BLOOD CELL COUNT(AUTO) 4.04 MIL/uL (4.0-5.2); WHITE BLOOD COUNT (AUTO) 8.5 K/uL (4.3-11.0)
[2019-05-15 18:44] LABS: APPEARANCE,URINE Clear (CLEAR); BILIRUBIN,URINE Negative (NEGATIVE); BLOOD, URINE Negative Ery/uL (NEGATIVE); COLOR,URINE Yellow (YELLOW); KETONES,URINE Trace (NEGATIVE); LEUKOCYTE ESTERASE ,URINE Negative (NEGATIVE); NITRITE, URINE Negative (NEGATIVE); PROTEIN,URINE Negative (NEGATIVE); UGLUCOSE Negative (NEGATIVE); UROBILINOGEN,URINE 0.2 EU/dL (0.2)
[2019-05-15 19:09] LABS: CALCIUM, SERUM 8.7 mg/dL (8.5-10.1); CARBON DIOXIDE 27 mmol/L (21-32); CHLORIDE 108 mmol/L (98-107); CREATININE 0.7 mg/dL (0.6-1.3); GLUCOSE 116 mg/dL (74-106); POTASSIUM 3.7 mmol/L (3.5-5.1); SODIUM SERUM 142 mmol/L (136-145); UREA NITROGEN, BLOOD 14 mg/dL (7-18)
[2019-05-15 19:15] LABS: ACETAMINOPHEN < 5 ug/ml (10-30); ALANINE AMINOTRANSFERASE 19 U/L (12-78); ALBUMIN 3.4 g/dL (3.4-5.0); ALCOHOL, BLOOD < 3 mg/dL (0-0); ALKALINE PHOSPHATASE 99 U/L (46-116); ASPARTATE AMINOTRANSFERASE 16 U/L (15-37); BILIRUBIN,DIRECT 0.1 mg/dL (0.0-0.2); BILIRUBIN,TOTAL 0.1 mg/dL (0.2-1.0); SALICYLATE 4.1 mg/dL (2.8-20.0); TOTAL PROTEIN, SERUM 6.8 g/dL (6.4-8.2)
--- NOTE | 2019-05-15 19:57 | NUR ---
PINKY COMBINATION SAW OPERATOR AT THE BED SIDE SPEAKING TO THE PT.
--- NOTE | 2019-05-15 20:28 | NUR ---
PER DEENA ZHANG PT IS MEDICALLY CLEARED FOR DISCHARGE. Patient discharged to home in stable condition. Written and verbal after care instructions given. Patient verbalizes understanding of instruction.Pt ambulatory with a steady gait
[2019-05-15 20:31] VITALS: BP 137/84
== END 2019-05-15 20:33 | disposition home or self-care (01) ==
LOC: ER 17:00
DX: M25.572 Pain in left ankle and joints of left foot (principal); E11.9 Type 2 diabetes mellitus without complications; F31.9 Bipolar disorder, unspecified; F43.10 Post-traumatic stress disorder, unspecified; F19.10 Other psychoactive substance abuse, uncomplicated; K21.9 Gastro-esophageal reflux disease without esophagitis; F17.200 Nicotine dependence, unspecified, uncomplicated; Y90.0 Blood alcohol level of less than 20 mg/100 ml; Z90.710 Acquired absence of both cervix and uterus; Z98.890 Other specified postprocedural states; Z88.5 Allergy status to narcotic agent; Z88.1 Allergy status to other antibiotic agents; Z04.6 Encounter for general psychiatric examination, requested by authority; Z95.0 Presence of cardiac pacemaker
CPT/HCPCS: 36415; 73610; 80048; 80076; 80305; 80307; 80329; 81001; 85025; 99285; G0480; 81000-TC

== ENCOUNTER 2019-05-28 01:39 | Emergency (ER) | payer OTHER ==
[~2019-05-28] VITALS: Ht 160 cm; Wt 83.9 kg
--- NOTE | 2019-05-28 02:33 | NUR ---
BIBSELF WITH FROM HOME. TO ER BED 9. AAOX4. NO RESP DISTRESS NOTED, BREATHING EVEN AND UNLABORED. WHEELED IN W/C TO BED. C/O L HIP PAIN. PT REPORTS THAT IS HAS BEEN GOING ON SINCE . PT REPORTS PAIN 10/10 SHARP AND SHOOTING DOWN THE LEG. SHE ALSO REPORTS THAT SHE HAS CHRONIC BACK PROBLEM. PT DENIES TRAUMA, DENIES FALL. MD AT BEDSIDE FOR EVAL. AWAITING ORDERS
[2019-05-28] MEDS ORDERED: KETOROLAC TROMETHAMINE INJ 30 MG/ML VIAL ONE (02:46)
[2019-05-28] MEDS ORDERED: HYDROCODONE/APAP 10/325MG 1 EA TABLET ONE (02:46)
[2019-05-28] MEDS ORDERED: HYDROCODONE/APAP 7.5/325MG 1 EACH TABLET PO ONE (03:00)
[2019-05-28] MEDS: KETOROLAC TROMETHAMINE INJ 60 MG/2 ML VIAL IM ONE (03:03)
[2019-05-28] MEDS: HYDROCODONE/APAP 10/325MG 1 EA TABLET PO ONE (03:06)
--- NOTE | 2019-05-28 03:07 | NUR ---
Patient discharged to home in stable condition. Written and verbal after care instructions given. Patient verbalizes understanding of instruction. Pt ambulatory with a steady gait
[2019-05-28 03:08] VITALS: BP 116/42
== END 2019-05-28 03:09 | disposition home or self-care (01) ==
LOC: ER 01:43
DX: G89.29 Other chronic pain (principal); M25.552 Pain in left hip; F17.200 Nicotine dependence, unspecified, uncomplicated; F32.9 Major depressive disorder, single episode, unspecified; F43.10 Post-traumatic stress disorder, unspecified; I25.10 Atherosclerotic heart disease of native coronary artery without angina pectoris; I25.2 Old myocardial infarction; E11.9 Type 2 diabetes mellitus without complications; K21.9 Gastro-esophageal reflux disease without esophagitis; F41.0 Panic disorder [episodic paroxysmal anxiety]; Z95.0 Presence of cardiac pacemaker; Z90.710 Acquired absence of both cervix and uterus; Z95.818 Presence of other cardiac implants and grafts; Z88.5 Allergy status to narcotic agent; Z88.6 Allergy status to analgesic agent; Z79.899 Other long term (current) drug therapy
CPT/HCPCS: 96372; 99283; 99406; J1885

== ENCOUNTER 2019-06-17 03:47 | Emergency (ER) | payer OTHER ==
[~2019-06-17] VITALS: Ht 160 cm; Wt 84.8 kg
[2019-06-17 04:11] VITALS: BP 116/73
[2019-06-17 04:44] LABS: APPEARANCE,URINE Cloudy (CLEAR); BILIRUBIN,URINE Negative (NEGATIVE); BLOOD, URINE Moderate Ery/uL (NEGATIVE); COLOR,URINE Yellow (YELLOW); KETONES,URINE Negative (NEGATIVE); LEUKOCYTE ESTERASE ,URINE Small (NEGATIVE); NITRITE, URINE Negative (NEGATIVE); PH,URINE 7.5 (5.0-8.0); PROTEIN,URINE 100 mg/dl (NEGATIVE); UGLUCOSE Negative (NEGATIVE)
--- NOTE | 2019-06-17 05:05 | NUR ---
Patient discharged to home in stable condition. Rx and Written and verbal after care instructions given. Patient verbalizes understanding of instruction.
[2019-06-17 05:08] LABS: BACTERIA,URINE Few /HPF (None Seen); SQUAMOUS EPITHELIAL CELL,UR Few /HPF (None Seen); WBC,URINE TOO NUMEROUS TO COUN /HPF (0-3)
== END 2019-06-17 05:15 | disposition home or self-care (01) ==
LOC: ER 03:47
DX: N39.0 Urinary tract infection, site not specified (principal); E11.9 Type 2 diabetes mellitus without complications; F43.10 Post-traumatic stress disorder, unspecified; I25.2 Old myocardial infarction; F19.10 Other psychoactive substance abuse, uncomplicated; F31.9 Bipolar disorder, unspecified; K21.9 Gastro-esophageal reflux disease without esophagitis; F41.0 Panic disorder [episodic paroxysmal anxiety]; F17.200 Nicotine dependence, unspecified, uncomplicated; Z95.0 Presence of cardiac pacemaker; Z90.710 Acquired absence of both cervix and uterus; Z98.890 Other specified postprocedural states; Z88.5 Allergy status to narcotic agent; Z88.1 Allergy status to other antibiotic agents; Z86.79 Personal history of other diseases of the circulatory system
CPT/HCPCS: 81001; 87077; 87086; 87186; 99283; A6403; 81000-TC

== ENCOUNTER 2019-09-30 18:41 | Emergency (ER) | payer OTHER ==
[~2019-09-30] VITALS: Ht 165.1 cm; Wt 68.0 kg
--- NOTE | 2019-09-30 18:54 | NUR ---
PT AAOX4.C/O HIP PAIN. PT STATING SHE TOOK IBUPROFEN AND ELEVE BUT DID NOT HELP. PT ON MONITOR AND PULSE OX. NO ACUTE DISTRESS NOTED.
[2019-09-30] MEDS ORDERED: KETOROLAC TROMETHAMINE INJ 60 MG/2 ML VIAL IM ONE ×2 (18:58→19:00)
[2019-09-30] MEDS ORDERED: HYDROCODONE/APAP 5/325MG 1 EACH TABLET PO ONE (19:00)
[2019-09-30] MEDS ORDERED: HYDROCODONE/APAP 5/325MG 1 EACH TABLET ONE (19:03)
[2019-09-30 19:34] VITALS: BP 128/72
--- NOTE | 2019-09-30 19:34 | NUR ---
Patient discharged to home in stable condition. Written and verbal after care instructions given. Patient verbalizes understanding of instruction and RX. PT ambulatory with a steady gait
== END 2019-09-30 19:35 | disposition home or self-care (01) ==
LOC: ER 18:41
DX: M54.42 Lumbago with sciatica, left side (principal); G89.29 Other chronic pain; M25.552 Pain in left hip; E11.9 Type 2 diabetes mellitus without complications; I25.2 Old myocardial infarction; I25.10 Atherosclerotic heart disease of native coronary artery without angina pectoris; F19.10 Other psychoactive substance abuse, uncomplicated; K21.9 Gastro-esophageal reflux disease without esophagitis; F17.200 Nicotine dependence, unspecified, uncomplicated; Z95.0 Presence of cardiac pacemaker; Z88.5 Allergy status to narcotic agent; Z88.6 Allergy status to analgesic agent; Z79.899 Other long term (current) drug therapy
CPT/HCPCS: 96372; 99283; J1885

== ENCOUNTER 2019-10-21 20:55 | Inpatient (IN) | payer OTHER ==
[~2019-10-21] VITALS: Ht 160 cm; Wt 90.7 kg
[~2019-10-21 20:55] MED LIST changes: -TRAZ-214 PO; +TRAZ-257 PO
--- NOTE | 2019-10-21 21:17 | NUR ---
PT [id number] FROM HOME LEFT LOWER ABD PAIN X1DAY, +N/V, -DYSURIA, DARK RED BLOOD IN STOOL X 1 TODAY WELL. PT AAOX4, VSS, NO ACUTE DISTRESS NOTED. PT CONNECTED TO THE MONITOR AND POX.
[2019-10-21 21:43] LABS: BASOPHILS % (AUTO) 0.7 % (0.0-2.0); EOSINOPHILS % (AUTO) 2.9 % (0.0-6.0); HEMATOCRIT 35 % (33-45); HEMOGLOBIN 11.4 g/dL (11.5-14.8); LYMPHOCYTES # (AUTO) 2.4 /CMM (0.8-4.8); LYMPHOCYTES % (AUTO) 36.2 % (20.0-44.0); MEAN CORPUSCULAR HGB CONC 33 g/dl (31.0-36.0); MEAN CORPUSCULAR VOLUME 93 fL (82-100); MONOCYTES # (AUTO) 0.5 /CMM (0.1-1.30); MONOCYTES % (AUTO) 6.8 % (2.0-12.0); NEUTROPHILS # (AUTO) 3.6 /CMM (1.8-8.9); NEUTROPHILS % (AUTO) 53.4 % (43.0-81.0); PLATELET COUNT (AUTO) 242 /CMM (150-450); RED BLOOD CELL COUNT(AUTO) 3.74 MIL/uL (4.0-5.2); WHITE BLOOD COUNT (AUTO) 6.7 K/uL (4.3-11.0)
--- NOTE | 2019-10-21 21:43 | NUR ---
BLOOD COLLECTED AND SENT TO LAB
[2019-10-21 21:57] LABS: BILIRUBIN,TOTAL 0.1 mg/dL (0.2-1.0); CALCIUM, SERUM 8.1 mg/dL (8.5-10.1); CREATININE 0.5 mg/dL (0.6-1.3); POTASSIUM 3.4 mmol/L (3.5-5.1); TOTAL PROTEIN, SERUM 6.1 g/dL (6.4-8.2)
[2019-10-21] MEDS ORDERED: LAMO200T10 PO (22:18)
[2019-10-21] MEDS ORDERED: LANS30CA56 PO (22:20)
[2019-10-21] MEDS ORDERED: HYDROCODONE/APAP 10/325MG 1 EA TABLET ONE (22:22)
[2019-10-21] MEDS ORDERED: GABA-534 PO (22:25)
[2019-10-21] MEDS ORDERED: DIPH25TA25 PO (22:27)
[2019-10-21] MEDS ORDERED: SUMA100T16 PO (22:29)
[2019-10-21] MEDS ORDERED: FLUO40CA49 PO (22:30)
[2019-10-21] MEDS ORDERED: HYDROCODONE/APAP 10/325MG 1 EA TABLET PO ONE (22:30)
[2019-10-21] MEDS ORDERED: MELA5TAB PO (22:31)
[2019-10-21] MEDS ORDERED: MULT-1200 PO (22:32)
[2019-10-21] MEDS ORDERED: IBUP100O19 PO (22:34)
[2019-10-21] MEDS ORDERED: IV NS 0.9% 1,000 ML IV PRN (23:53)
[2019-10-22] MEDS ORDERED: Z GUARD REMEDY 2 OZ OINT TP PRN
[2019-10-22] MEDS ORDERED: MAG HYDROX/AL HYDROX/SIMETH 30 ML UDC PO PRN
[2019-10-22] MEDS ORDERED: ONDANSETRON HCL/PF 4 MG/2 ML VIAL IVP PRN
[2019-10-22] MEDS ORDERED: MAGNESIUM HYDROXIDE 30 ML UDC PO PRN
--- NOTE | 2019-10-22 00:30 | NUR ---
REPORT GIVEN TO THONY RN
--- NOTE | 2019-10-22 01:00 | NUR ---
pt transferred in stable condition
--- NOTE | 2019-10-22 01:55 | NUR ---
RN NOTES ADMITTED PATIENT, SAFETY MEASURES IN PLACE, INITIAL ASSESSMENT AND ADMISSION PROCESS INITIATED, NO SKIN ISSUES, ALL NEEDS ANTICIPATED, DUE MEDS GIVEN, WILL CONTINUE TO MONITOR ACCORDINGLY.
[2019-10-22 02:00] VITALS: BP 113/70
[2019-10-22] MEDS: PANTOPRAZOLE 40 MG VIAL IV SCH ×3 (02:10→21:33)
[2019-10-22] MEDS: MORPHINE SULFATE INJ 2 MG/ML DISP.SYRIN IV PRN ×4 (02:11→21:42)
[2019-10-22 06:13] LABS: BASOPHILS % (AUTO) 0.7 % (0.0-2.0); HEMATOCRIT 33 % (33-45); HEMOGLOBIN 10.9 g/dL (11.5-14.8); LYMPHOCYTES # (AUTO) 2.6 /CMM (0.8-4.8); LYMPHOCYTES % (AUTO) 45.4 % (20.0-44.0); MEAN CORPUSCULAR HGB CONC 33 g/dl (31.0-36.0); MEAN CORPUSCULAR VOLUME 92 fL (82-100); MONOCYTES # (AUTO) 0.4 /CMM (0.1-1.30); MONOCYTES % (AUTO) 6.7 % (2.0-12.0); NEUTROPHILS # (AUTO) 2.5 /CMM (1.8-8.9); NEUTROPHILS % (AUTO) 43.2 % (43.0-81.0); PLATELET COUNT (AUTO) 225 /CMM (150-450); RED BLOOD CELL COUNT(AUTO) 3.55 MIL/uL (4.0-5.2); WHITE BLOOD COUNT (AUTO) 5.8 K/uL (4.3-11.0)
[2019-10-22 06:48] LABS: THYROID STIMULATING HORMONE 2.817 uIU/mL (0.358-3.74)
--- NOTE | 2019-10-22 07:01 | NUR ---
RN NOTES ALL NEEDS ATTENDED AND MET, ABLE TO REST FOR THE REST OF THE SHIFT. , KEPT CLEAN DRY AND COMFORTABLE. NO SIGNS OF ACUTE RESPIRATORY / CARDIAC DISTRESS NOTED, SAFETY MEASURES IN PLACED, ASPIRATION PRECAUTION EMPHASIZED. MAINTAINED ON NPO ORDERED. WILL ENDORSE TO AM NURSE FOR CONTINUITY OF CARE.
--- NOTE | 2019-10-22 07:30 | NUR ---
RECEIVED PT. VS STABLE,REQUESTS TO SMOKE.
--- NOTE | 2019-10-22 08:30 | NUR ---
SMOKING CONSENT SIGNED.PT. REQUESTS TO EAT.
[2019-10-22 08:31] LABS: CALCIUM, SERUM 7.9 mg/dL (8.5-10.1); CREATININE 0.6 mg/dL (0.6-1.3); MAGNESIUM 1.9 mg/dL (1.8-2.4); PHOSPHORUS 3.3 mg/dL (2.5-4.9); POTASSIUM 3.8 mmol/L (3.5-5.1)
--- NOTE | 2019-10-22 08:45 | NUR ---
[facility] CHIEF FINANCIAL OFFICER IN CLEAR LIQ. DIET ORDERED.
[2019-10-22] MEDS: NICOTINE PATCH (14MG) 14 MG PATCH.TD24 TD SCH (09:00)
[2019-10-22] MEDS: SUCRALFATE 1 G TABLET PO SCH ×4 (09:47→21:33)
[2019-10-22 10:29] VITALS: BP_SYST 113; BP_SYST 115; BP_DIAS 64; BP_DIAS 69
--- NOTE | 2019-10-22 18:00 | NUR ---
MEDICATED X 2 FOR ABD. PAIN WITH MORPHINE.NO STOOL THIS SHIFT.
[2019-10-22 18:12] VITALS: BP 110/64
--- NOTE | 2019-10-22 19:05 | NUR ---
RN MS OPENING NOTES RECEIVED PATIENT IN BED AWAKE ALERT AND ORIENTED X4, RESPIRATIONS EVEN AND UNLABORED WITH EQUAL RISE AND FALL OF CHEST, DENIES ANY PAIN OR DISCOMFORT AT THIS TIME,IVF RUNNING ORDERED. ORIENTED TO STAFF AND CALL LIGHT AND KEPT WITHIN REACH.SAFETY PRECAUTIONS IN PLACE, LOW BED AND LOCKED, MADE PATIENT AWARE NEEDS STOOL SAMPLE. REMAINS COMFORTABLE AT THIS TIME, ALL NEEDS ATTENDED WILL CONTINUE TO MONITOR AND ATTEND TO NEEDS.
--- NOTE | 2019-10-22 19:10 | NUR ---
RN MS NOTES IV SITE TO RIGHT FA #22 G INTACT AND PATENT, PREVIOUS IV SITE TO RIGHT AC #18G REMOVED LEAKING.
[2019-10-22 20:00] VITALS: BP 126/79
--- NOTE | 2019-10-22 21:42 | NUR ---
RN MS NOTES PATIENT COMPLAINT OF PAIN TO STOMACH STATES "10/10 SHARP PAIN, CAN I HAVE MORPHINE" VS WNL, MORPHINE PRN GIVEN , WILL CONTINUE TO MONITOR FOR EFFECTIVENESS.
--- NOTE | 2019-10-22 21:54 | NUR ---
RN MS NOTES PATIENT REQUESTED FOR BENADRYL STATES "SHE TAKES IT AT HOME AND IT HELPS HER SLEEP AND SHE HAS NOT SLEPT WELL THE PAST FEW DAYS , CAN YOU PLEASE ASK THE DOCTOR". NOTIFIED BIN LOAIZA HOSPITALIST WITH NEW ORDER NOTED VERIFIED AND CARRIED OUT. BENADRYL PO 50 MG HS PRN. PATIENT MADE AWARE
[2019-10-22] MEDS ORDERED: diphenhydrAMINE HCL 50 MG CAPSULE PO PRN (22:00)
--- NOTE | 2019-10-22 23:04 | NUR ---
RN MS NOTES BENADRYL PRN GIVEN ORDERED AND REQUESTED BY PATIENT. STATES " IT HELPS HER SLEEP WILL CONTINUE TO MONITOR FOR EFFECTIVENESS."
--- NOTE | 2019-10-23 | NUR ---
INFUSED IVF X 5 HRS PER PATIENT REQUEST WANTED TO GET SLEEP TONIGHT. AND STATES " SHE IS DRINKING WATER"
--- NOTE | 2019-10-23 06:48 | NUR ---
RN MS CLOSING NOTES PATIENT IN BED SLEEPING EASILY AROUSABLE ALERT AND ORIENTED X4, RESPIRATIONS EVEN AND UNLABORED WITH EQUAL RISE AND FALL OF CHEST, DENIES ANY PAIN OR DISCOMFORT AT THIS TIME,IVF OFF PER PATIENT REQUEST WANTED TO SLEEP TOLERATED CLEAR LIQUIDS WELL. CALL LIGHT KEPT WITHIN REACH.SAFETY PRECAUTIONS IN PLACE, LOW BED AND LOCKED. REMAINS COMFORTABLE AT THIS TIME, ALL NEEDS ATTENDED WILL CONTINUE TO MONITOR AND ATTEND TO NEEDS AND ENDORSE TO NEXT SHIFT.
--- NOTE | 2019-10-23 07:30 | NUR ---
MS/RN OPENING NOTE Patient received resting in bed, A/O x4, showing no signs of acute distress or SOB, saturating >95% on RA. IV line in clean and intact s/l. Patient refused skin assessment. Bed is in lowest position, side rails x2 in upright position, call light is within reach and patient is aware of how to call for assistance when needed .Will continue with plan of care.
[2019-10-23 08:00] VITALS: BP 121/69
[2019-10-23 08:02] LABS: BASOPHILS % (AUTO) 0.6 % (0.0-2.0); EOSINOPHILS % (AUTO) 5.1 % (0.0-6.0); HEMATOCRIT 36 % (33-45); HEMOGLOBIN 11.7 g/dL (11.5-14.8); LYMPHOCYTES # (AUTO) 2.5 /CMM (0.8-4.8); LYMPHOCYTES % (AUTO) 41.6 % (20.0-44.0); MEAN CORPUSCULAR HGB CONC 33 g/dl (31.0-36.0); MEAN CORPUSCULAR VOLUME 93 fL (82-100); MONOCYTES # (AUTO) 0.4 /CMM (0.1-1.30); MONOCYTES % (AUTO) 7.2 % (2.0-12.0); NEUTROPHILS # (AUTO) 2.8 /CMM (1.8-8.9); NEUTROPHILS % (AUTO) 45.5 % (43.0-81.0); PLATELET COUNT (AUTO) 240 /CMM (150-450); RED BLOOD CELL COUNT(AUTO) 3.89 MIL/uL (4.0-5.2); WHITE BLOOD COUNT (AUTO) 6.1 K/uL (4.3-11.0)
[2019-10-23] MEDS: NICOTINE PATCH (14MG) 14 MG PATCH.TD24 TD SCH (08:09)
[2019-10-23] MEDS: PANTOPRAZOLE 40 MG VIAL IV SCH (08:10)
[2019-10-23] MEDS: SUCRALFATE 1 G TABLET PO SCH (08:10)
[2019-10-23 08:17] LABS: CALCIUM, SERUM 8.4 mg/dL (8.5-10.1); CREATININE 0.5 mg/dL (0.6-1.3)
[2019-10-23] MEDS ORDERED: PANT40TA2 PO (08:28)
[2019-10-23] MEDS ORDERED: HYDR-4354 PO (08:28)
[2019-10-23] MEDS: MORPHINE SULFATE INJ 2 MG/ML DISP.SYRIN IV PRN (09:08)
[2019-10-23] MEDS ORDERED: INFLUENZA VACCINE 2019-20 0.5 ML DISP.SYRIN IM ONE (09:30)
[2019-10-23] MEDS ORDERED: OMEP40CA13 PO (10:31)
--- NOTE | 2019-10-23 10:36 | NUR ---
MS/SCENIC ARTS SUPERVISOR NOTE Patient is medically stable for discharge. Patient is in no acute distress, no SOB noted, saturating well on RA. Vital signs WNL. Patient refused skin assessment. IV line removed, ID band removed. Patient has all belongings with them, belongings list signed. DC instructions provided, patient verbalized understanding, DC instructions signed. Patient kept clean and dry throughout shift, all patient needs met, all due meds given. MD is aware of discharge. Patient left the unit ambulatory accompanied by MAINTAINER CENTRAL OFFICE and left hospital via private car with .
== END 2019-10-23 10:30 | disposition home or self-care (01) | DRG 241 ==
LOC: ER 21:05 → MED 23:45
PROVIDERS: ADMIT Nurse Practitioner Acute Care; ATTEND Nurse Practitioner Acute Care
DX: K27.9 Peptic ulcer, site unspecified, unspecified as acute or chronic, without hemorrhage or perforation (principal); D64.9 Anemia, unspecified; E87.6 Hypokalemia; E11.9 Type 2 diabetes mellitus without complications; E66.9 Obesity, unspecified; F17.200 Nicotine dependence, unspecified, uncomplicated; F31.9 Bipolar disorder, unspecified; K44.9 Diaphragmatic hernia without obstruction or gangrene; K64.9 Unspecified hemorrhoids; K21.9 Gastro-esophageal reflux disease without esophagitis; I10 Essential (primary) hypertension; J44.9 Chronic obstructive pulmonary disease, unspecified; I25.10 Atherosclerotic heart disease of native coronary artery without angina pectoris; F32.9 Major depressive disorder, single episode, unspecified; F43.10 Post-traumatic stress disorder, unspecified; Z98.84 Bariatric surgery status; Z90.710 Acquired absence of both cervix and uterus; G47.00 Insomnia, unspecified; I25.2 Old myocardial infarction; Z80.0 Family history of malignant neoplasm of digestive organs; Z86.73 Personal history of transient ischemic attack (TIA), and cerebral infarction without residual deficits; Z88.5 Allergy status to narcotic agent; Z88.8 Allergy status to other drugs, medicaments and biological substances; Z79.51 Long term (current) use of inhaled steroids; Z79.899 Other long term (current) drug therapy
CPT/HCPCS: 36415; 80048-TC; 80061-TC; 80076-TC; 83690-TC; 83735-TC; 84100-TC; 84443-TC; 85025-TC; 85730-TC; 86850-TC; 87081-TC; C9113; G0378; J2270; J7030; Q0163; Q2036

== ENCOUNTER 2019-11-28 22:14 | Emergency (ER) | payer OTHER ==
[~2019-11-28] VITALS: Ht 160 cm; Wt 94.8 kg
[~2019-11-28 22:14] MED LIST changes: -ATOR10TA PO; +DIPH25TA25 PO; -FLUO10CA26 PO; +FLUO40CA49 PO; +GABA-534 PO; +HYDR-4354 PO; +IBUP100O19 PO; +LAMO200T10 PO; -LAMO200T2 PO; +MELA5TAB PO; +MULT-1200 PO; +OMEP40CA13 PO; +SUMA100T16 PO; -TRAZ-257 PO
[2019-11-28 22:23] VITALS: BP 148/87
[2019-11-28] MEDS ORDERED: KETOROLAC TROMETHAMINE INJ 60 MG/2 ML VIAL IM ONE ×2 (22:40→23:00)
--- NOTE | 2019-12-03 14:14 | NUR ---
LATE ENTRY: PT REC'D 60 MG TORADOL IM IN LT BUTTOCK. PT C/O LOWER BACK PAIN.
== END 2019-11-28 22:49 | disposition home or self-care (01) ==
LOC: ER 22:14
DX: M54.5 Low back pain (principal); G89.29 Other chronic pain; I10 Essential (primary) hypertension; E11.9 Type 2 diabetes mellitus without complications; J45.909 Unspecified asthma, uncomplicated; F19.10 Other psychoactive substance abuse, uncomplicated; K21.9 Gastro-esophageal reflux disease without esophagitis; Z90.710 Acquired absence of both cervix and uterus; Z98.890 Other specified postprocedural states; Z95.0 Presence of cardiac pacemaker; Z88.5 Allergy status to narcotic agent; Z88.6 Allergy status to analgesic agent; Z79.899 Other long term (current) drug therapy
CPT/HCPCS: 96372; 99283; J1885

== ENCOUNTER 2020-01-05 21:10 | Emergency (ER) | payer OTHER ==
[~2020-01-05] VITALS: Ht 160 cm; Wt 89.4 kg
[2020-01-05 21:18] VITALS: BP 157/92
--- NOTE | 2020-01-05 21:25 | NUR ---
AT BEDSIDE FOR EVAL.
[2020-01-05] MEDS ORDERED: HYDROCODONE/APAP 5/325MG 1 EACH TABLET PO ONE (21:30)
[2020-01-05] MEDS ORDERED: DIAZEPAM 5 MG TABLET PO ONE (21:30)
[2020-01-05] MEDS ORDERED: DIAZEPAM 5 MG TABLET ONE (21:35)
[2020-01-05] MEDS ORDERED: HYDROCODONE/APAP 5/325MG 1 EACH TABLET ONE (21:35)
--- NOTE | 2020-01-05 22:18 | NUR ---
Patient discharged to home in stable condition. Written and verbal after care instructions given. Patient verbalizes understanding of instruction.
== END 2020-01-05 22:23 | disposition home or self-care (01) ==
LOC: ER 21:12
DX: M54.5 Low back pain (principal); I10 Essential (primary) hypertension; J45.909 Unspecified asthma, uncomplicated; F32.9 Major depressive disorder, single episode, unspecified; F43.10 Post-traumatic stress disorder, unspecified; I25.2 Old myocardial infarction; F17.200 Nicotine dependence, unspecified, uncomplicated; K21.9 Gastro-esophageal reflux disease without esophagitis; Z90.710 Acquired absence of both cervix and uterus; Z98.890 Other specified postprocedural states; Z88.5 Allergy status to narcotic agent; Z88.6 Allergy status to analgesic agent; Z79.899 Other long term (current) drug therapy

== ENCOUNTER 2020-04-07 12:46 | Emergency (ER) | payer OTHER ==
[~2020-04-07] VITALS: Ht 160 cm; Wt 89.4 kg
--- NOTE | 2020-04-07 12:48 | NUR ---
Kenia martinez in [facility] - 04/07/20 at [address] PT [address] VIA [facility].
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
[2020-04-07 13:25] LABS: BASOPHILS % (AUTO) 0.6 % (0.0-2.0); EOSINOPHILS % (AUTO) 3.8 % (0.0-6.0); HEMATOCRIT 38 % (33-45); HEMOGLOBIN 12.6 g/dL (11.5-14.8); LYMPHOCYTES # (AUTO) 2.3 /CMM (0.8-4.8); LYMPHOCYTES % (AUTO) 31.1 % (20.0-44.0); MEAN CORPUSCULAR HGB CONC 33 g/dl (31.0-36.0); MEAN CORPUSCULAR VOLUME 92 fL (82-100); MONOCYTES # (AUTO) 0.4 /CMM (0.1-1.30); MONOCYTES % (AUTO) 5.1 % (2.0-12.0); NEUTROPHILS # (AUTO) 4.3 /CMM (1.8-8.9); NEUTROPHILS % (AUTO) 59.4 % (43.0-81.0); PLATELET COUNT (AUTO) 254 /CMM (150-450); RED BLOOD CELL COUNT(AUTO) 4.16 MIL/uL (4.0-5.2); WHITE BLOOD COUNT (AUTO) 7.3 K/uL (4.3-11.0)
[2020-04-07 13:30] LABS: CALCIUM, SERUM 8.9 mg/dL (8.5-10.1); CARBON DIOXIDE 26 mmol/L (21-32); CHLORIDE 107 mmol/L (98-107); CREATININE 0.8 mg/dL (0.6-1.3); GLUCOSE 102 mg/dL (74-106); POTASSIUM 3.6 mmol/L (3.5-5.1); SODIUM SERUM 140 mmol/L (136-145); UREA NITROGEN, BLOOD 13 mg/dL (7-18)
[2020-04-07 13:35] LABS: ALANINE AMINOTRANSFERASE 13 U/L (12-78); ALBUMIN 3.5 g/dL (3.4-5.0); ALCOHOL, BLOOD < 3 mg/dL (0-0); ALKALINE PHOSPHATASE 79 U/L (46-116); ASPARTATE AMINOTRANSFERASE 15 U/L (15-37); BILIRUBIN,DIRECT 0.1 mg/dL (0.0-0.2); BILIRUBIN,TOTAL 0.3 mg/dL (0.2-1.0); SALICYLATE 4.4 mg/dL (2.8-20.0); TOTAL PROTEIN, SERUM 6.8 g/dL (6.4-8.2)
[2020-04-07 13:36] LABS: ACETAMINOPHEN 0 ug/ml (10-30)
[2020-04-07 13:46] LABS: APPEARANCE,URINE Clear (CLEAR); BILIRUBIN,URINE SMALL (NEGATIVE); BLOOD, URINE Negative Ery/uL (NEGATIVE); COLOR,URINE Yellow (YELLOW); KETONES,URINE Trace (NEGATIVE); LEUKOCYTE ESTERASE ,URINE Negative (NEGATIVE); NITRITE, URINE Negative (NEGATIVE); PH,URINE 5.5 (5.0-8.0); PROTEIN,URINE Negative (NEGATIVE); UGLUCOSE Negative (NEGATIVE); UROBILINOGEN,URINE 0.2 EU/dL (0.2)
[2020-04-07 13:49] LABS: BACTERIA,URINE Few /HPF (None Seen); SQUAMOUS EPITHELIAL CELL,UR Few /HPF (None Seen); WBC,URINE 0-2 /HPF (0-3)
--- NOTE | 2020-04-07 15:30 | NUR ---
Patient is resting comfortably in bed with eyes closed. Easily aroused. VSS
--- NOTE | 2020-04-07 17:47 | NUR ---
Patient is resting comfortably in bed with eyes closed. Easily aroused. VSS
--- NOTE | 2020-04-07 19:54 | NUR ---
Patient discharged to home in stable condition. Written and verbal after care instructions given. Patient verbalizes understanding of instruction. Pt ambulated with steady gait. vss.
--- NOTE | 2020-04-07 19:54 | NUR ---
Pt cleared by crisis team.
[2020-04-07 19:55] VITALS: BP 128/63
== END 2020-04-07 20:35 | disposition home or self-care (01) ==
LOC: ER 12:46
DX: R45.851 Suicidal ideations (principal); R45.850 Homicidal ideations; F29 Unspecified psychosis not due to a substance or known physiological condition; F43.10 Post-traumatic stress disorder, unspecified; F31.9 Bipolar disorder, unspecified; G43.909 Migraine, unspecified, not intractable, without status migrainosus; I10 Essential (primary) hypertension; I25.10 Atherosclerotic heart disease of native coronary artery without angina pectoris; I25.2 Old myocardial infarction; J45.909 Unspecified asthma, uncomplicated; K21.9 Gastro-esophageal reflux disease without esophagitis; E11.9 Type 2 diabetes mellitus without complications; Z90.710 Acquired absence of both cervix and uterus; Z98.890 Other specified postprocedural states; Z88.5 Allergy status to narcotic agent; Z88.6 Allergy status to analgesic agent; Z79.899 Other long term (current) drug therapy
CPT/HCPCS: 36415; 80048; 80076; 80305; 80307; 80329; 81001; 85025; 99284; G0480; 81000-TC

== ENCOUNTER 2020-04-09 22:08 | Emergency (ER) | payer OTHER ==
[~2020-04-09] VITALS: Ht 160 cm; Wt 84.8 kg
--- NOTE | 2020-04-09 22:22 | NUR ---
PATIENT CAME TO ER BED 9 C/O DIZZINESS AND MIDSTERNAL CHEST PAIN W/ NUMBING SENSATION ON BILATERAL UPPER EXTREMITY SINCE 2x DAYS AGO. PATIENT STATES THAT SHE WAS PREVIOUSLY HERE IN THE EMERGENCY ROOM 2x DAYS AGO AND STATES, "HAD THE SAME FEELING ,BUT I DIDN'T THINK ANYTHING OF IT". PATIENT STATES THAT SHE WAS STRESSED ABOUT LOSING HER HOME. AAOX4. NO SOB. BREATHING EVENLY AND UNLABORED ON ROOM AIR. CONNECTED TO MONITOR.
--- NOTE | 2020-04-09 22:28 | NUR ---
REHABILITATION TEACHER AT BEDSIDE FOR BLOOD DRAW.
[2020-04-09 22:38] LABS: BASOPHILS % (AUTO) 0.4 % (0.0-2.0); EOSINOPHILS % (AUTO) 2.6 % (0.0-6.0); HEMATOCRIT 38 % (33-45); HEMOGLOBIN 12.6 g/dL (11.5-14.8); LYMPHOCYTES # (AUTO) 2.7 /CMM (0.8-4.8); LYMPHOCYTES % (AUTO) 30.5 % (20.0-44.0); MEAN CORPUSCULAR HGB CONC 33 g/dl (31.0-36.0); MEAN CORPUSCULAR VOLUME 91 fL (82-100); MONOCYTES # (AUTO) 0.5 /CMM (0.1-1.30); MONOCYTES % (AUTO) 5.8 % (2.0-12.0); NEUTROPHILS # (AUTO) 5.3 /CMM (1.8-8.9); NEUTROPHILS % (AUTO) 60.7 % (43.0-81.0); PLATELET COUNT (AUTO) 274 /CMM (150-450); RED BLOOD CELL COUNT(AUTO) 4.12 MIL/uL (4.0-5.2); WHITE BLOOD COUNT (AUTO) 8.7 K/uL (4.3-11.0)
[2020-04-09 22:45] LABS: CALCIUM, SERUM 9.1 mg/dL (8.5-10.1); CARBON DIOXIDE 28 mmol/L (21-32); CHLORIDE 104 mmol/L (98-107); CREATININE 0.8 mg/dL (0.6-1.3); GLUCOSE 108 mg/dL (74-106); POTASSIUM 3.8 mmol/L (3.5-5.1); SODIUM SERUM 138 mmol/L (136-145); UREA NITROGEN, BLOOD 8 mg/dL (7-18)
--- NOTE | 2020-04-09 23:14 | NUR ---
Patient discharged to home in stable condition. Written and verbal after care instructions given. Patient verbalizes understanding of instruction.
[2020-04-09 23:15] VITALS: BP 123/75
== END 2020-04-09 23:15 | disposition home or self-care (01) ==
LOC: ER 22:08
DX: F41.9 Anxiety disorder, unspecified (principal); G89.4 Chronic pain syndrome; G43.909 Migraine, unspecified, not intractable, without status migrainosus; I10 Essential (primary) hypertension; I25.2 Old myocardial infarction; I25.10 Atherosclerotic heart disease of native coronary artery without angina pectoris; K21.9 Gastro-esophageal reflux disease without esophagitis; J45.909 Unspecified asthma, uncomplicated; F17.200 Nicotine dependence, unspecified, uncomplicated; E11.9 Type 2 diabetes mellitus without complications; F32.9 Major depressive disorder, single episode, unspecified; Z98.890 Other specified postprocedural states; Z88.5 Allergy status to narcotic agent; Z88.6 Allergy status to analgesic agent; Z79.899 Other long term (current) drug therapy
CPT/HCPCS: 36415; 71045-TC; 80048-TC; 84484-TC; 85025-TC

== ENCOUNTER 2020-04-30 13:30 | Emergency (ER) | payer OTHER ==
[~2020-04-30] VITALS: Ht 160 cm; Wt 86.6 kg
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
--- NOTE | 2020-04-30 13:44 | NUR ---
SEEN AND EXAMINED BY .
--- NOTE | 2020-04-30 13:45 | NUR ---
JEWISH HISTORY PROFESSOR AT BEDSIDE FOR XRAY.
[2020-04-30] MEDS ORDERED: ACETAMINOPHEN ES 500 MG TABLET ONE (13:51)
--- NOTE | 2020-04-30 13:58 | NUR ---
PT IS WHEELED TO CT SCAN VIA [facility].
[2020-04-30] MEDS ORDERED: ACETAMINOPHEN ES 500 MG TABLET PO ONE (14:00)
--- NOTE | 2020-04-30 14:30 | NUR ---
Patient discharged to home in stable condition. Written and verbal after care instructions given. Patient verbalizes understanding of instruction.
[2020-04-30 14:31] VITALS: BP 134/64
== END 2020-04-30 14:32 | disposition home or self-care (01) ==
LOC: ER 13:33
DX: S13.4XXA Sprain of ligaments of cervical spine, initial encounter (principal); S80.02XA Contusion of left knee, initial encounter; G43.909 Migraine, unspecified, not intractable, without status migrainosus; I25.10 Atherosclerotic heart disease of native coronary artery without angina pectoris; I25.2 Old myocardial infarction; I10 Essential (primary) hypertension; K21.9 Gastro-esophageal reflux disease without esophagitis; E11.9 Type 2 diabetes mellitus without complications; F32.9 Major depressive disorder, single episode, unspecified; F43.10 Post-traumatic stress disorder, unspecified; F17.200 Nicotine dependence, unspecified, uncomplicated; Z98.890 Other specified postprocedural states; Z88.5 Allergy status to narcotic agent; Z88.6 Allergy status to analgesic agent; Z79.899 Other long term (current) drug therapy; V49.59XA Passenger injured in collision with other motor vehicles in traffic accident, initial encounter; Y93.89 Activity, other specified; Y92.413 State road as the place of occurrence of the external cause; Y99.8 Other external cause status
CPT/HCPCS: 70450-TC; 72125-TC; 73564-TC; 73610-TC

== ENCOUNTER 2021-07-28 20:03 | Emergency (ER) | payer OTHER ==
[~2021-07-28] VITALS: Ht 160 cm; Wt 90.7 kg
[~2021-07-28 20:03] MED LIST changes: +IBUP-2383 PO; -IBUP100O19 PO; -OMEP40CA13 PO; +OMEP40CA21 PO
--- NOTE | 2021-07-28 20:35 | NUR ---
PT BIBSELF C/O "MY HIP POPPED OUT AND I POPPED IT BACK IN THIS MORNING" BIBSELF C/O "MY HIP POPPED OUT AND I POPPED IT BACK IN THIS MORNING". PT ALERT AND ORIENTED X3. PT PRESENTS WITH NON LABORED BREATHING, IS REQUESTING FOR PAIN MEDICATIONS.
[2021-07-28] MEDS ORDERED: HYDROCODONE/APAP 5/325MG TABLET ONE (21:50)
[2021-07-28] MEDS ORDERED: HYDROCODONE/APAP 5/325MG TABLET PO ONE (22:00)
--- NOTE | 2021-07-28 22:25 | NUR ---
PATIENT ALERT WATCHING TV NO COMPLAINTS AT THIS TIME.
[2021-07-28] MEDS ORDERED: HYDR-3976 GT (23:06)
[2021-07-28] MEDS ORDERED: HYDR-3972 PO (23:07)
[2021-07-28 23:25] VITALS: BP 111/83
--- NOTE | 2021-07-28 23:25 | NUR ---
Patient discharged to home in stable condition. Written and verbal after care instructions given. Patient verbalizes understanding of instruction.
== END 2021-07-28 23:26 | disposition home or self-care (01) ==
LOC: ER 20:12
DX: M13.851 Other specified arthritis, right hip (principal); M25.551 Pain in right hip; M54.9 Dorsalgia, unspecified; G89.29 Other chronic pain; F31.9 Bipolar disorder, unspecified; G43.909 Migraine, unspecified, not intractable, without status migrainosus; I10 Essential (primary) hypertension; I25.10 Atherosclerotic heart disease of native coronary artery without angina pectoris; I25.2 Old myocardial infarction; J45.909 Unspecified asthma, uncomplicated; K21.9 Gastro-esophageal reflux disease without esophagitis; E11.9 Type 2 diabetes mellitus without complications; F17.200 Nicotine dependence, unspecified, uncomplicated; Z90.710 Acquired absence of both cervix and uterus; Z98.890 Other specified postprocedural states; Z88.5 Allergy status to narcotic agent; Z88.6 Allergy status to analgesic agent; Z79.899 Other long term (current) drug therapy
CPT/HCPCS: 73501

== ENCOUNTER 2021-08-31 12:31 | Inpatient (IN) | payer OTHER ==
[~2021-08-31] VITALS: Ht 160 cm; Wt 78.9 kg
[~2021-08-31 12:31] MED LIST changes: +HYDR-3972 PO
[2021-08-31 13:00] LABS: BASOPHILS # (AUTO) 0.1 K/uL (0.0-0.2); BASOPHILS % (AUTO) 0.9 % (0.0-2.0); EOSINOPHILS % (AUTO) 1.5 % (0.0-6.0); HEMATOCRIT 41 % (33-45); HEMOGLOBIN 13.7 g/dL (11.5-14.8); LYMPHOCYTES # (AUTO) 2.6 K/uL (0.8-4.8); LYMPHOCYTES % (AUTO) 27.3 % (20.0-44.0); MEAN CORPUSCULAR HGB CONC 33 g/dl (31.0-36.0); MEAN CORPUSCULAR VOLUME 90 fL (82-100); MONOCYTES # (AUTO) 0.4 K/uL (0.1-1.30); MONOCYTES % (AUTO) 4.3 % (2.0-12.0); NEUTROPHILS # (AUTO) 6.3 K/uL (1.8-8.9); PLATELET COUNT (AUTO) 272 K/uL (150-450); RED BLOOD CELL COUNT(AUTO) 4.58 MIL/uL (4.0-5.2); WHITE BLOOD COUNT (AUTO) 9.5 K/uL (4.3-11.0)
--- NOTE | 2021-08-31 13:00 | NUR ---
The patient is bibra39, from home, c/o chest pain non-radiating stabbing 4/10 ps, 1 nitro spray given by ems. The patient is alert and oriented x4. Per patient the pain started at 1100. In room air and denies SOB. Respiration regular and unlabored. Attached to the monitor. Warm blanket provided for comfort. Will continue to monitor the patient.
--- NOTE | 2021-08-31 13:02 | NUR ---
IV LINE IS ESTABLISHED, BLOOD SPECIMEN COLLECTED AND SENT TO THE LAB. THE LINE IS SALNE LOCKED.
[2021-08-31 13:07] LABS: CALCIUM, SERUM 9.1 mg/dL (8.5-10.1); CARBON DIOXIDE 27 mmol/L (21-32); CHLORIDE 105 mmol/L (98-107); CREATININE 0.7 mg/dL (0.6-1.3); GLUCOSE 104 mg/dL (74-106); POTASSIUM 3.4 mmol/L (3.5-5.1); SODIUM SERUM 141 mmol/L (136-145); UREA NITROGEN, BLOOD 9 mg/dL (7-18)
[2021-08-31 13:21] LABS: ALANINE AMINOTRANSFERASE 18 U/L (12-78); ALKALINE PHOSPHATASE 92 U/L (46-116); ASPARTATE AMINOTRANSFERASE 20 U/L (15-37); BILIRUBIN,DIRECT 0.1 mg/dL (0.0-0.2); BILIRUBIN,TOTAL 0.3 mg/dL (0.2-1.0)
--- NOTE | 2021-08-31 13:29 | NUR ---
COVID SWAB DONE AND SENT TO THE LAB
[2021-08-31] MEDS ORDERED: METF-881 PO (14:29)
[2021-08-31] MEDS ORDERED: TRAZ-257 PO (14:29)
[2021-08-31] MEDS ORDERED: DICL100G34 TP (14:29)
[2021-08-31] MEDS ORDERED: OMEP40CA21 PO (14:29)
[2021-08-31] MEDS ORDERED: AMLO-212 PO (14:29)
[2021-08-31] MEDS ORDERED: RISP0.2515 PO (14:29)
--- NOTE | 2021-08-31 14:38 | NUR ---
CHRISTIANA JAUREGUI SPEAKING WITH MIRA HAWLEY
--- NOTE | 2021-08-31 14:41 | NUR ---
JUVENT[place] ENGINE ROOM HELPER FROM [place] T[facility] [phone] EXT [phone]
[2021-08-31] MEDS ORDERED: ASPIRIN 81 MG TAB.CHEW PO ONE (15:00)
[2021-08-31] MEDS ORDERED: ASPIRIN 81 MG TAB.CHEW ONE (15:19)
--- NOTE | 2021-08-31 16:22 | NUR ---
tele bed requested from house sup
--- NOTE | 2021-08-31 17:22 | NUR ---
Patient will go to [facility].
--- NOTE | 2021-08-31 17:30 | NUR ---
Report given to CHANDAN Peng for [place] Rm [id number]
[2021-08-31] MEDS ORDERED: DOCUSATE SODIUM 100 MG CAPSULE PO PRN (19:00)
[2021-08-31] MEDS ORDERED: ONDANSETRON HCL/PF 4 MG/2 ML VIAL IVP PRN (19:00)
[2021-08-31] MEDS ORDERED: MORPHINE SULFATE INJ 2 MG/ML DISP.SYRIN IV PRN (19:00)
[2021-08-31] MEDS ORDERED: MAG HYDROX/AL HYDROX/SIMETH 30 ML UDC PO PRN (19:00)
[2021-08-31] MEDS ORDERED: NITROGLYCERIN 0.4 MG/TAB BOTTLE SL PRN (19:00)
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
--- NOTE | 2021-08-31 21:16 | NUR ---
JUMPBASTING LINING BASTER NOTE PATIENT REFUSED LAB BLOOD DRAW AT THIS TIME. PER PATIENT HER VEINS ROLL AND "THEY HAVE ALREADY POKED ME SO MANY TIMES" PATIENT REQUESTING FOR VEIN FINDER, TOLD PATIENT THAT WE DO NOT HAVE THAT ON THE FLOOR. WILL TRY TO BORROW ONE FOR MORNING DRAW SO LAB COULD TRY AGAIN.
[2021-08-31] MEDS ORDERED: SIMVASTATIN 20 MG TABLET PO SCH (22:00)
--- NOTE | 2021-08-31 22:10 | NUR ---
CLINICAL PROFESSOR NOTE PATIENT REQUESTING FOR PAIN MEDICATION AND SLEEPING MEDICATION. MESSAGED DOCTOR SREE. DOCTOR ORDERED TRAZODONE 100MG QHS. WILL FOLLOW THROUGH ORDER. NO NEW ORDER FOR PAIN.
[2021-08-31] MEDS ORDERED: TRAZODONE 50 MG TABLET PO PRN (23:00)
[2021-08-31 23:58] VITALS: BP 97/53
[2021-09-01 04:28] VITALS: BP 92/51
--- NOTE | 2021-09-01 07:34 | NUR ---
MS RN NOTE REPORT GIVEN TO DARELL FOR CONTINUITY OF CARE.
--- NOTE | 2021-09-01 07:54 | NUR ---
RN OPENING NOTES PT AWAKE, IN BED, A/O X4, RESPONSIVE, NO SOB, NO RR DISTRESS, ON ROOM AIR, SAFETY PRECAUTIONS MET, BED RAIL X2, BED LOCK ON, BED IN LOWEST POSITION, CALL LIGHT WITHIN REACH.
[2021-09-01] MEDS ORDERED: ASPIRIN 81 MG TAB.CHEW PO SCH (09:00)
[2021-09-01] MEDS ORDERED: IOHEXOL-350 100 ML VIAL IV ONE (09:11)
[2021-09-01] MEDS ORDERED: IBUPROFEN 200 MG TABLET ONE (09:12)
[2021-09-01] MEDS ORDERED: CT SWABBABLE VALVE TRANS SET 1 EA INFUS.SET MC ONE (09:13)
[2021-09-01] MEDS ORDERED: IV NS 0.9% 250 ML IV ONE (09:13)
[2021-09-01] MEDS ORDERED: METOPROLOL TARTRATE INJ 5 MG/5 ML AMPUL ONE (09:13)
[2021-09-01] MEDS ORDERED: NITROGLYCERIN 0.4 MG/TAB BOTTLE ONE (09:13)
--- NOTE | 2021-09-01 09:18 | NUR ---
DYE RANGE OPERATOR NOTES PT AWAKE, ALERT AND ORIENTED, NO FURTHER COMPLAINT OF CHEST PAIN, NOT IN DISTRESS, AMBULATES INSIDE HER ROOM WITH STEADY GAIT, PT FOR CTA, PT SIGNED CONSENT, WHILE BEING PICKED UP BY TRANSPORT FOR THE TEST, PT REMOVED HER IV LINE, AND STATED THAT SHE WANTS TO LEAVE INSTEAD TO SMOKE, EXPLAINED TO PT THE NEED FOR THE TEST BUT PREFERED TO LEAVE WITH ALL HER BELONGINGS, PT REFUSED TO SIGN AGAINST MEDICAL ADVICE FORM AND BELONGINGS FORM AND LEFT RIGHT AWAY, CHARGE NURSE, NURSING SECURITY MONITOR AND DR. JEFFRIES INFORMED.
[2021-09-01 12:58] LABS: CHOLESTEROL 216 mg/dL (<200); HDL CHOLESTEROL 58 mg/dL (40-60); LDL 139 mg/dL (0-99); TRIGLYCERIDES 96 mg/dL (30-150)
[2021-09-02] MEDS ORDERED: NICOTINE PATCH (14MG) 14 MG PATCH.TD24 TD SCH (09:00)
== END 2021-09-01 09:20 | disposition left against medical advice (07) | DRG 756 ==
LOC: ER 12:33 → TELE 17:31
PROVIDERS: ADMIT Registered Nurse; ATTEND Registered Nurse
DX: F41.9 Anxiety disorder, unspecified (principal); I42.9 Cardiomyopathy, unspecified; Z91.19 Patient's noncompliance with other medical treatment and regimen; E11.9 Type 2 diabetes mellitus without complications; F31.9 Bipolar disorder, unspecified; F43.10 Post-traumatic stress disorder, unspecified; K21.9 Gastro-esophageal reflux disease without esophagitis; J44.9 Chronic obstructive pulmonary disease, unspecified; I25.10 Atherosclerotic heart disease of native coronary artery without angina pectoris; I10 Essential (primary) hypertension; Z20.822 Contact with and (suspected) exposure to COVID-19; Z86.73 Personal history of transient ischemic attack (TIA), and cerebral infarction without residual deficits; R42 Dizziness and giddiness; G89.29 Other chronic pain; Z90.710 Acquired absence of both cervix and uterus; Z98.84 Bariatric surgery status; Z91.81 History of falling; M06.9 Rheumatoid arthritis, unspecified; M19.90 Unspecified osteoarthritis, unspecified site; F17.210 Nicotine dependence, cigarettes, uncomplicated; E66.9 Obesity, unspecified; Z68.34 Body mass index [BMI] 34.0-34.9, adult; Z82.49 Family history of ischemic heart disease and other diseases of the circulatory system; Z80.9 Family history of malignant neoplasm, unspecified; I25.2 Old myocardial infarction; W19.XXXA Unspecified fall, initial encounter; Y92.9 Unspecified place or not applicable; J45.909 Unspecified asthma, uncomplicated
CPT/HCPCS: 36415; 71045-TC; 80048-TC; 80061-TC; 80076-TC; 83880; 84484-TC; 85025-TC; 87081-TC; 93307-TC; 93880-TC; C9803; G0378; J3490; J7050; Q9967

== ENCOUNTER 2021-10-30 16:47 | Emergency (ER) | payer OTHER ==
[~2021-10-30] VITALS: Ht 160 cm; Wt 81.6 kg
[~2021-10-30 16:47] MED LIST changes: +AMLO-212 PO; +DICL100G34 TP; -GABA-534 PO; -HYDR-3972 PO; -HYDR-4354 PO; -IBUP-2383 PO; -LAMO200T10 PO; -LANS30CA56 PO; -MELA5TAB PO; +METF-881 PO; -MULT-1200 PO; +RISP0.2515 PO; -SUMA100T16 PO; +TRAZ-257 PO
--- NOTE | 2021-10-30 17:07 | NUR ---
BILAT EAR PAIN/FOUL SMELL X 2 WEEKS, NOTICE BLOOD TO R EAR WHILE CLEANING W/ Q TIP YESTERDAY. DENIES CHANGE IN HEARING. WILL CONTINUE TO MONITOR THE PATIENT.
[2021-10-30] MEDS ORDERED: HYDROCODONE/APAP 5/325MG TABLET PO ONE (17:30)
[2021-10-30] MEDS ORDERED: AMOX500C2 PO (17:39)
[2021-10-30] MEDS ORDERED: NEOM10DR11 EACH EAR (17:39)
[2021-10-30] MEDS ORDERED: HYDROCODONE/APAP 5/325MG TABLET ONE (17:43)
[2021-10-30 17:49] VITALS: BP 146/88
--- NOTE | 2021-10-30 17:49 | NUR ---
Patient discharged to home in stable condition. Written and verbal after care instructions given. Patient verbalizes understanding of instruction.
== END 2021-10-30 17:49 | disposition home or self-care (01) ==
LOC: ER 16:48
DX: H66.91 Otitis media, unspecified, right ear (principal); E11.9 Type 2 diabetes mellitus without complications; G43.909 Migraine, unspecified, not intractable, without status migrainosus; I10 Essential (primary) hypertension; I25.10 Atherosclerotic heart disease of native coronary artery without angina pectoris; I25.2 Old myocardial infarction; J45.909 Unspecified asthma, uncomplicated; K21.9 Gastro-esophageal reflux disease without esophagitis; F32.9 Major depressive disorder, single episode, unspecified; F43.10 Post-traumatic stress disorder, unspecified; G89.29 Other chronic pain; F17.200 Nicotine dependence, unspecified, uncomplicated; Z98.890 Other specified postprocedural states; Z88.5 Allergy status to narcotic agent; Z88.6 Allergy status to analgesic agent; Z79.899 Other long term (current) drug therapy
CPT/HCPCS: 82962-TC

== ENCOUNTER 2021-12-30 14:30 | Emergency (ER) | payer OTHER ==
[~2021-12-30] VITALS: Ht 160 cm; Wt 84.8 kg
[~2021-12-30 14:30] MED LIST changes: +AMOX500C2 PO; +NEOM10DR11 EACH EAR
[2021-12-30 14:42] VITALS: BP 124/90
[2021-12-30] MEDS ORDERED: MECLIZINE HCL 12.5 MG TABLET PO ONE (15:30)
[2021-12-30] MEDS ORDERED: NAPROXEN 250 MG TABLET PO ONE (15:30)
[2021-12-30 15:42] LABS: BASOPHILS # (AUTO) 0.1 K/uL (0.0-0.2); BASOPHILS % (AUTO) 0.6 % (0.0-2.0); EOSINOPHILS % (AUTO) 1.3 % (0.0-6.0); HEMATOCRIT 40 % (33-45); LYMPHOCYTES # (AUTO) 2.5 K/uL (0.8-4.8); MEAN CORPUSCULAR HGB CONC 33 g/dl (31.0-36.0); MEAN CORPUSCULAR VOLUME 88 fL (82-100); MONOCYTES # (AUTO) 0.6 K/uL (0.1-1.30); MONOCYTES % (AUTO) 5.8 % (2.0-12.0); NEUTROPHILS # (AUTO) 7.9 K/uL (1.8-8.9); NEUTROPHILS % (AUTO) 70.3 % (43.0-81.0); PLATELET COUNT (AUTO) 307 K/uL (150-450); RED BLOOD CELL COUNT(AUTO) 4.52 MIL/uL (4.0-5.2); WHITE BLOOD COUNT (AUTO) 11.2 K/uL (4.3-11.0)
[2021-12-30 16:47] LABS: CALCIUM, SERUM 9.2 mg/dL (8.5-10.1); CREATININE 0.6 mg/dL (0.6-1.3); POTASSIUM 3.6 mmol/L (3.5-5.1)
[2021-12-30] MEDS ORDERED: NAPROXEN 250 MG TABLET ONE (16:51)
[2021-12-30] MEDS ORDERED: MECLIZINE HCL 25 MG TABLET ONE (16:51)
[2021-12-30] MEDS ORDERED: CIPR7.5D9 EACH EAR (17:40)
--- NOTE | 2021-12-30 17:45 | NUR ---
Patient discharged to home in stable condition. Written and verbal after care instructions given. Patient verbalizes understanding of instruction.
== END 2021-12-30 18:19 | disposition home or self-care (01) ==
LOC: ER 14:33
DX: H92.03 Otalgia, bilateral (principal); G43.909 Migraine, unspecified, not intractable, without status migrainosus; I10 Essential (primary) hypertension; I25.2 Old myocardial infarction; J45.909 Unspecified asthma, uncomplicated; K21.9 Gastro-esophageal reflux disease without esophagitis; E11.9 Type 2 diabetes mellitus without complications; G89.29 Other chronic pain; F32.A Depression, unspecified; F17.200 Nicotine dependence, unspecified, uncomplicated; Z86.79 Personal history of other diseases of the circulatory system; Z90.710 Acquired absence of both cervix and uterus; Z88.5 Allergy status to narcotic agent; Z88.8 Allergy status to other drugs, medicaments and biological substances; Z79.84 Long term (current) use of oral hypoglycemic drugs; Z79.51 Long term (current) use of inhaled steroids; Z79.899 Other long term (current) drug therapy
CPT/HCPCS: 36415; 70450; 80048; 84703; 85025; 99284; J8597

== ENCOUNTER 2022-05-27 16:47 | Emergency (ER) | payer OTHER ==
[~2022-05-27] VITALS: Ht 160 cm; Wt 93.0 kg
[~2022-05-27 16:47] MED LIST changes: +CIPR7.5D9 EACH EAR
--- NOTE | 2022-05-27 16:52 | NUR ---
TO ER BED 4. [id number] "I GET SHORT OF BREATH WHEN I SLEEP", HX OF SLEEP APNEA. ATTACHED TO MONITOR. SATTING AT 98% ON ROOM AIR. AWATING MD PRIDE.
--- NOTE | 2022-05-27 17:01 | NUR ---
X RAY AT BEDSIDE
[2022-05-27] MEDS ORDERED: ALBU18HF2 INH (17:34)
--- NOTE | 2022-05-27 18:15 | NUR ---
Patient discharged to home in stable condition. Written and verbal after care instructions given. Patient verbalizes understanding of instruction.
[2022-05-27 18:16] VITALS: BP 129/72
== END 2022-05-27 18:16 | disposition home or self-care (01) ==
LOC: ER 17:16
DX: R06.00 Dyspnea, unspecified (principal); G43.909 Migraine, unspecified, not intractable, without status migrainosus; I10 Essential (primary) hypertension; I25.10 Atherosclerotic heart disease of native coronary artery without angina pectoris; J45.909 Unspecified asthma, uncomplicated; K21.9 Gastro-esophageal reflux disease without esophagitis; E11.9 Type 2 diabetes mellitus without complications; F32.A Depression, unspecified; F43.10 Post-traumatic stress disorder, unspecified; G89.29 Other chronic pain; F17.200 Nicotine dependence, unspecified, uncomplicated; Z98.890 Other specified postprocedural states; Z88.5 Allergy status to narcotic agent; Z88.6 Allergy status to analgesic agent; Z79.899 Other long term (current) drug therapy
CPT/HCPCS: 71045-TC

== ENCOUNTER 2022-09-26 19:44 | Emergency (ER) | payer OTHER ==
[~2022-09-26 19:44] MED LIST changes: +ALBU18HF2 INH
--- NOTE | 2022-09-26 21:19 | NUR ---
CALLED FOR TRIAGE , NO ANSWER
== END 2022-09-26 21:30 | disposition left against medical advice (07) ==
LOC: ER 19:51
DX: Z53.21 Procedure and treatment not carried out due to patient leaving prior to being seen by health care provider (principal)